=== PATIENT | female | born 1960 | race Caucasian/White ===

== ENCOUNTER → 2016-06-23 | Outpatient (CLI) | payer BC ==
[2016-06-23 09:56] LABS: Basophils % (A) 1 %; CH 33.7; CHCM 34.7; Eosinophils # (A) 0.2 k/uL (0-0.7); Eosinophils % (A) 3 %; HCT 46.4 % (34.0-46.0); HDW 2.83; HGB 15.8 gm/dL (11.4-16.0); Luc # (Auto) 0.11; Luc % (Auto) 2; Lymphocytes # (A) 1.9 k/uL (1.0-4.8); Lymphocytes % (A) 33 %; MCH 33.1 pg (25.0-35.0); MCHC 33.9 g/dL (31.0-37.0); MCV 97.5 fL (80.0-100.0); Mean Platelet Volume 6.1; Monocytes # (A) 0.5 k/uL (0-1.0); Monocytes % (A) 8 %; Neutrophils # (A) 3.1 k/uL (1.3-7.7); Neutrophils % (A) 54 %; RBC 4.76 m/uL (3.80-5.40); RDW 14.7 % (11.5-15.5); WBC 5.7 k/uL (3.8-10.6); WBC (Perox) 5.72
[2016-06-23 10:06] LABS: ALT 28 U/L (9-52); AST 21 U/L (14-36); Alkaline Phosphatase 79 U/L (38-126); Anion Gap 9 mmol/L; Blood Urea Nitrogen 15 mg/dL (7-17); Calcium 9.3 mg/dL (8.4-10.2); Carbon Dioxide 35 mmol/L (22-30); Chloride 99 mmol/L (98-107); Cholesterol 211 mg/dL (<200); Glucose 96 mg/dL (74-99); HDL Cholesterol 90 mg/dL (40-60); Non-African American GFR(MDRD) >60 (>60 ml/min/1.73 sqM); Potassium 3.9 mmol/L (3.5-5.1); Sodium 143 mmol/L (137-145); Total Bilirubin 0.8 mg/dL (0.2-1.3); Total Protein 7.4 g/dL (6.3-8.2); Triglycerides 77 mg/dL (<150)
[2016-06-23 10:54] LABS: Hepatitis C Virus IgG Index 0.03
[2016-06-23 10:55] LABS: Hepatitis C Virus IgG Ab Negative (Negative)
== END | disposition home or self-care (01) ==
LOC: LABWHC1 09:05
PROVIDERS: ATTEND Family Medicine
DX: Z13.9 Encounter for screening, unspecified (principal); E78.2 Mixed hyperlipidemia; E03.9 Hypothyroidism, unspecified; I10 Essential (primary) hypertension
CPT/HCPCS: 36415; 80053; 80061; 84439; 84443; 84481; 85025; 86803

== ENCOUNTER 2018-03-24 06:28 | Emergency (ER) | payer BC ==
[2018-03-24 06:53] LABS: Glucose,Whole Blood 91 mg/dL (75-99)
[2018-03-24] MEDS ORDERED: SODIUM CHLORIDE 0.9% 1,000 ML IV STA (07:22)
[2018-03-24] MEDS ORDERED: hydrALAZINE HCL 20 MG/ML 1 ML VIAL IVP STA ×2 (07:24→11:17)
--- NOTE | 2018-03-24 07:37 | ED ---
General Adult HPI - General Chief complaint: Neuro Symptoms/Deficit Stated complaint: Confusion Time Seen by Provider: 03/24/18 07:07 Source: patient, family, RN notes reviewed Mode of arrival: ambulatory Limitations: altered mental status - History of Present Illness Initial comments: Patient is a is a 57-year-old female presenting to the emergency Department with family for change in mental status. Onset of symptoms was this morning. Last known well was last night. Patient feels somewhat confused. Patient has problems with memory regarding recent events. Patient was forgetful but they were in the process of moving. Patient also forgot that she was supposed to spend the night and equal tells me. Patient has also forgotten that she called and take the work day off. No headache. Patient states she does have vague memory of some of these things now that is being discussed. No headache. No isolated area of weakness. No history of similar symptoms previously. Patient has been off her medications for the last month. - Related Data Previous Rx's Medication Instructions Recorded amLODIPine [Norvasc] 5 mg PO DAILY #7 tab 03/24/18 Allergies Allergy/AdvReac Type Severity Reaction Status Date / Time Sulfa (Sulfonamide Allergy Unknown Verified 03/24/18 07:21 Antibiotics) Childhood Review of Systems ROS Statement: Those systems with pertinent positive or pertinent negative responses have been documented in the HPI. ROS Other: All systems not noted in ROS Statement are negative. Constitutional: Denies: fever Eyes: Denies: eye pain ENT: Denies: ear pain Respiratory: Denies: cough Cardiovascular: Denies: chest pain Endocrine: Denies: fatigue Gastrointestinal: Denies: abdominal pain Genitourinary: Denies: dysuria Musculoskeletal: Denies: back pain Skin: Denies: rash Neurological: Reports: confusion. Denies: weakness Past Medical History Past Medical History: Hypertension, Pneumonia, Thyroid Disorder Additional Past Medical History / Comment(s): 09/07/14 Pt admitted to floor s/p revision total R knee arthroscopy. Other HX: migraines, hypothyroidism History of Any Multi-Drug Resistant Organisms: None Reported Past Surgical History: Appendectomy, Bariatric Surgery, Section, Hysterectomy, Joint Replacement, Orthopedic Surgery Additional Past Surgical History / Comment(s): 09/07/14 Revision total R knee arthroplasty. Additional SX: partial thyroidectomy, kyree knee replacements, rt knee arthroscopy, lap band Past Anesthesia/Blood Transfusion Reactions: No Reported Reaction Past Psychological History: No Psychological Hx Reported Smoking Status: Former smoker Past Alcohol Use History: Occasional Past Drug Use History: None Reported - Past Family History Father Family Medical History: Cancer General Exam Limitations: altered mental status General appearance: alert, in no apparent distress Head exam: Present: atraumatic Eye exam: Present: normal appearance, PERRL, EOMI. Absent: nystagmus ENT exam: Present: normal oropharynx Neck exam: Present: normal inspection Respiratory exam: Present: normal lung sounds bilaterally. Absent: chest wall tenderness Cardiovascular Exam: Present: regular rate, normal rhythm Expanded Peripheral pulses: 2+: Radial (R), Radial (L), Posterior Tibialis (R), Posterior Tibialis (L) GI/Abdominal exam: Present: soft. Absent: tenderness Extremities exam: Present: normal inspection. Absent: pedal edema, calf tenderness Neurological exam: Present: alert, oriented X3, CN II-XII intact. Absent: motor sensory deficit Expanded Neurological exam: Present: protecting the airway Patient oriented to: Present: person, place, time Speech: Present: fluid speech Cranial nerves: EOM's Intact: Normal, Facial Sensation: Normal Sensory exam: Upper Extremity Light Touch: Normal, Lower Extremity Light Touch: Normal Motor strength exam: RUE: 5, LUE: 5, RLE: 5, LLE: 5 Eye Response: (4) open spontaneously Motor Response: (6) obeys commands Verbal Response: (5) oriented Psychiatric exam: Present: normal affect, normal mood Skin exam: Present: normal color Course Vital Signs 03/24/18 03/24/18 03/24/18 06:35 06:55 07:48 Temperature 97.8 F 97.9 F Pulse Rate 83 81 78 Respiratory 20 18 18 Rate Blood Pressure 173/103 177/122 161/117 O2 Sat by Pulse 98 100 100 Oximetry 03/24/18 03/24/18 03/24/18 08:33 08:46 11:03 Temperature Pulse Rate 78 95 81 Respiratory 18 16 18 Rate Blood Pressure 158/84 168/92 146/113 O2 Sat by Pulse 100 100 100 Oximetry 03/24/18 11:28 Temperature Pulse Rate 82 Respiratory 18 Rate Blood Pressure 157/92 O2 Sat by Pulse 99 Oximetry - Reevaluation(s) Reevaluation #1: 03/24/18 11:17 Patient reevaluated and improving. Patient states she remembers majority of things at this point. Patient adds that she also remembers striking her head on a cabinet earlier this morning. She states it knocked her down but she did not completely lose consciousness. Clinical picture is now more insistent with concussion. Patient blood pressure did respond well to hydralazine however starting to rise again. Patient will be given an additional dose with anticipation of likely discharge. EKG Findings - EKG Comments: EKG Findings:: Normal sinus rhythm 81. LA 152. QRS 78. QT 376. QTc 436. Left axis. Normal QRS. No acute ST change. Medical Decision Making - Lab Data Result diagrams: 03/24/18 07:06 03/24/18 07:06 Lab Results 03/24/18 03/24/18 03/24/18 Range/Units 06:49 07:06 07:06 WBC 7.7 (3.8-10.6) k/uL RBC 4.62 (3.80-5.40) m/uL Hgb 15.4 (11.4-16.0) gm/dL Hct 45.6 (34.0-46.0) % MCV 98.6 (80.0-100.0) fL MCH 33.2 (25.0-35.0) pg MCHC 33.7 (31.0-37.0) g/dL RDW 14.1 (11.5-15.5) % Plt Count 196 (150-450) k/uL Neutrophils % 76 % Lymphocytes % 15 % Monocytes % 5 % Eosinophils % 2 % Basophils % 1 % Neutrophils # 5.8 (1.3-7.7) k/uL Lymphocytes # 1.2 (1.0-4.8) k/uL Monocytes # 0.4 (0-1.0) k/uL Eosinophils # 0.2 (0-0.7) k/uL Basophils # 0.0 (0-0.2) k/uL PT (9.0-12.0) sec INR (<1.2) APTT (22.0-30.0) sec Sodium (137-145) mmol/L Potassium (3.5-5.1) mmol/L Chloride (98-107) mmol/L Carbon Dioxide (22-30) mmol/L Anion Gap mmol/L BUN (7-17) mg/dL Creatinine (0.52-1.04) mg/dL Est GFR (CKD-EPI)AfAm (>60 ml/min/1.73 sqM) Est GFR (CKD-EPI)NonAf (>60 ml/min/1.73 sqM) Glucose (74-99) mg/dL POC Glucose (mg/dL) 91 (75-99) mg/dL POC Glu Executive Meeting Manager ID Jeannette Real Calcium (8.4-10.2) mg/dL Total Bilirubin (0.2-1.3) mg/dL AST (14-36) U/L ALT (9-52) U/L Alkaline Phosphatase (38-126) U/L Total Creatine Kinase 69 (30-135) U/L CK-MB (CK-2) 1.4 (0.0-2.4) ng/mL CK-MB (CK-2) Rel Index 2.0 Troponin I <0.012 (0.000-0.034) ng/mL Total Protein (6.3-8.2) g/dL Albumin (3.5-5.0) g/dL TSH (0.465-4.680) mIU/L Free T4 (0.78-2.19) ng/dL Free T3 pg/mL (2.8-5.3) pg/ml Urine Color Urine Appearance (Clear) Urine pH (5.0-8.0) Ur Specific May (1.001-1.035) Urine Protein (Negative) Urine Glucose (UA) (Negative) Urine Ketones (Negative) Urine Blood (Negative) Urine Nitrite (Negative) Urine Bilirubin (Negative) Urine Urobilinogen (<2.0) mg/dL Ur Leukocyte Esterase (Negative) Urine WBC (0-5) /hpf Ur Squamous Epith Cells (0-4) /hpf Urine Mucus (None) /hpf 03/24/18 03/24/18 03/24/18 Range/Units 07:06 07:06 07:06 WBC (3.8-10.6) k/uL RBC (3.80-5.40) m/uL Hgb (11.4-16.0) gm/dL Hct (34.0-46.0) % MCV (80.0-100.0) fL MCH (25.0-35.0) pg MCHC (31.0-37.0) g/dL RDW (11.5-15.5) % Plt Count (150-450) k/uL Neutrophils % % Lymphocytes % % Monocytes % % Eosinophils % % Basophils % % Neutrophils # (1.3-7.7) k/uL Lymphocytes # (1.0-4.8) k/uL Monocytes # (0-1.0) k/uL Eosinophils # (0-0.7) k/uL Basophils # (0-0.2) k/uL PT 10.0 (9.0-12.0) sec INR 0.9 (<1.2) APTT 22.5 (22.0-30.0) sec Sodium 141 (137-145) mmol/L Potassium 4.0 (3.5-5.1) mmol/L Chloride 109 H (98-107) mmol/L Carbon Dioxide 27 (22-30) mmol/L Anion Gap 5 mmol/L BUN 20 H (7-17) mg/dL Creatinine 0.56 (0.52-1.04) mg/dL Est GFR (CKD-EPI)AfAm >90 (>60 ml/min/1.73 sqM) Est GFR (CKD-EPI)NonAf >90 (>60 ml/min/1.73 sqM) Glucose 97 (74-99) mg/dL POC Glucose (mg/dL) (75-99) mg/dL POC Glu Executive Meeting Manager ID Calcium 9.5 (8.4-10.2) mg/dL Total Bilirubin 0.8 (0.2-1.3) mg/dL AST 23 (14-36) U/L ALT 32 (9-52) U/L Alkaline Phosphatase 76 (38-126) U/L Total Creatine Kinase (30-135) U/L CK-MB (CK-2) (0.0-2.4) ng/mL CK-MB (CK-2) Rel Index Troponin I (0.000-0.034) ng/mL Total Protein 6.9 (6.3-8.2) g/dL Albumin 4.3 (3.5-5.0) g/dL TSH 4.830 H (0.465-4.680) mIU/L Free T4 0.88 (0.78-2.19) ng/dL Free T3 pg/mL 4.0 (2.8-5.3) pg/ml Urine Color Urine Appearance (Clear) Urine pH (5.0-8.0) Ur Specific May (1.001-1.035) Urine Protein (Negative) Urine Glucose (UA) (Negative) Urine Ketones (Negative) Urine Blood (Negative) Urine Nitrite (Negative) Urine Bilirubin (Negative) Urine Urobilinogen (<2.0) mg/dL Ur Leukocyte Esterase (Negative) Urine WBC (0-5) /hpf Ur Squamous Epith Cells (0-4) /hpf Urine Mucus (None) /hpf 03/24/18 Range/Units 08:41 WBC (3.8-10.6) k/uL RBC (3.80-5.40) m/uL Hgb (11.4-16.0) gm/dL Hct (34.0-46.0) % MCV (80.0-100.0) fL MCH (25.0-35.0) pg MCHC (31.0-37.0) g/dL RDW (11.5-15.5) % Plt Count (150-450) k/uL Neutrophils % % Lymphocytes % % Monocytes % % Eosinophils % % Basophils % % Neutrophils # (1.3-7.7) k/uL Lymphocytes # (1.0-4.8) k/uL Monocytes # (0-1.0) k/uL Eosinophils # (0-0.7) k/uL Basophils # (0-0.2) k/uL PT (9.0-12.0) sec INR (<1.2) APTT (22.0-30.0) sec Sodium (137-145) mmol/L Potassium (3.5-5.1) mmol/L Chloride (98-107) mmol/L Carbon Dioxide (22-30) mmol/L Anion Gap mmol/L BUN (7-17) mg/dL Creatinine (0.52-1.04) mg/dL Est GFR (CKD-EPI)AfAm (>60 ml/min/1.73 sqM) Est GFR (CKD-EPI)NonAf (>60 ml/min/1.73 sqM) Glucose (74-99) mg/dL POC Glucose (mg/dL) (75-99) mg/dL POC Glu Executive Meeting Manager ID Calcium (8.4-10.2) mg/dL Total Bilirubin (0.2-1.3) mg/dL AST (14-36) U/L ALT (9-52) U/L Alkaline Phosphatase (38-126) U/L Total Creatine Kinase (30-135) U/L CK-MB (CK-2) (0.0-2.4) ng/mL CK-MB (CK-2) Rel Index Troponin I (0.000-0.034) ng/mL Total Protein (6.3-8.2) g/dL Albumin (3.5-5.0) g/dL TSH (0.465-4.680) mIU/L Free T4 (0.78-2.19) ng/dL Free T3 pg/mL (2.8-5.3) pg/ml Urine Color Yellow Urine Appearance Clear (Clear) Urine pH 7.0 (5.0-8.0) Ur Specific May 1.016 (1.001-1.035) Urine Protein Negative (Negative) Urine Glucose (UA) Negative (Negative) Urine Ketones Negative (Negative) Urine Blood Negative (Negative) Urine Nitrite Negative (Negative) Urine Bilirubin Negative (Negative) Urine Urobilinogen <2.0 (<2.0) mg/dL Ur Leukocyte Esterase Large H (Negative) Urine WBC 7 H (0-5) /hpf Ur Squamous Epith Cells 1 (0-4) /hpf Urine Mucus Rare H (None) /hpf - Radiology Data Radiology results: report reviewed (Atrophy and chronic small vessel disease without acute abnormality), image reviewed (No acute process. Borderline heart size. Possible underlying pulmonary arterial hypertension.) Disposition Clinical Impression: Concussion, Hypertensive urgency Disposition: HOME SELF-CARE Condition: Stable Instructions (If sedation given, give patient instructions): Concussion (ED), Hypertension (ED) Additional Instructions: Please follow-up with primary care physician in the next day or 2 for recheck. You will need further management for blood pressure control. Return for confusion, weakness, uncontrolled pain, visual changes, worsening or changing symptoms or other concerns. Prescriptions: amLODIPine [Norvasc] 5 mg PO DAILY #7 tab Is patient prescribed a controlled substance at d/c from ED?: No Referrals: El Morales MD [Primary Care Provider] - 1-2 days Time of Disposition: 11:51
--- NOTE | 2018-03-24 07:55 | CT ---
EXAMINATION TYPE: CT brain wo con DATE OF EXAM: 03/24/2018 COMPARISON: 08/10/2011 HISTORY: Confusion CT DLP: 1083.[address] of the brain was performed. The ventricles, basal cisterns and sulci overlying the cerebral convexities demonstrate mild enlargem ent. There is no evidence for intracranial hemorrhage or sulcal effacement. There is decreased attenuation about the periventricular white matter and deep white matter of both c erebral hemispheres, compatible with chronic small vessel ischemia. Differential diagnosis does inclu de demyelination. No mass effects are seen.No midline shift. Osseous calvarium is intact. If symptoms persist consider MRI. IMPRESSION: 1. Age related atrophic and chronic small vessel ischemic change without acute intracranial process s een at this time.
[2018-03-24 07:59] LABS: ALT 32 U/L (9-52); AST 23 U/L (14-36); Albumin 4.3 g/dL (3.5-5.0); Alkaline Phosphatase 76 U/L (38-126); Anion Gap 5 mmol/L; Basophils % (A) 1 %; Blood Urea Nitrogen 20 mg/dL (7-17); Calcium 9.5 mg/dL (8.4-10.2); Carbon Dioxide 27 mmol/L (22-30); Chloride 109 mmol/L (98-107); Eosinophils # (A) 0.2 k/uL (0-0.7); Eosinophils % (A) 2 %; Glucose 97 mg/dL (74-99); HCT 45.6 % (34.0-46.0); HGB 15.4 gm/dL (11.4-16.0); Lymphocytes # (A) 1.2 k/uL (1.0-4.8); Lymphocytes % (A) 15 %; MCH 33.2 pg (25.0-35.0); MCHC 33.7 g/dL (31.0-37.0); MCV 98.6 fL (80.0-100.0); Mean Platelet Volume 6.7; Monocytes # (A) 0.4 k/uL (0-1.0); Monocytes % (A) 5 %; Neutrophils # (A) 5.8 k/uL (1.3-7.7); Neutrophils % (A) 76 %; Platelet Count 196 k/uL (150-450); RBC 4.62 m/uL (3.80-5.40); RDW 14.1 % (11.5-15.5); Sodium 141 mmol/L (137-145); Total Bilirubin 0.8 mg/dL (0.2-1.3); Total Protein 6.9 g/dL (6.3-8.2); WBC 7.7 k/uL (3.8-10.6)
[2018-03-24 08:05] LABS: INR 0.9 (<1.2); Partial Thromboplastin Time 22.5 sec (22.0-30.0)
[2018-03-24 08:10] LABS: Creatine Kinase 69 U/L (30-135)
--- NOTE | 2018-03-24 08:15 | XR ---
EXAMINATION TYPE: XR chest 2V DATE OF EXAM: 03/24/2018 COMPARISON: None HISTORY: 57-year-old female confusion, altered mental status TECHNIQUE: AP and lateral views FINDINGS: Heart borderline enlarged. Mild elongation thoracic aorta. No consolidation or pleural effusion. Ther e is large appearance to the main right and left pulmonary arteries on the lateral view. Lap band dev ice is present. IMPRESSION: Borderline heart size. Possible underlying pulmonary arterial hypertension. Otherwise, no acute proce ss seen.
[2018-03-24 08:22] LABS: Creatine Kinase MB 1.4 ng/mL (0.0-2.4); Troponin I <0.012 ng/mL (0.000-0.034)
[2018-03-24 08:37] LABS: T4, Free (Free Thyroxine) 0.88 ng/dL (0.78-2.19)
[2018-03-24 09:04] LABS: Appearance,Urine Clear (Clear); Bilirubin,Urine Negative (Negative); Blood,Urine Negative (Negative); Color,Urine Yellow; Glucose,Urine (UA) Negative (Negative); Ketones,Urine Negative (Negative); Leukocyte Esterase,Urine Large (Negative); Mucus,Urine Rare /hpf; Nitrite,Urine Negative (Negative); Protein,Urine Negative (Negative); Specific Gravity,Urine 1.016 (1.001-1.035); Squamous Epithelial Cell,Urine 1 /hpf (0-4); Urobilinogen,Urine <2.0 mg/dL (<2.0)
[2018-03-24 11:05] VITALS: RESP 18
[2018-03-24] MEDS ORDERED: amLODIPine 5 MG TAB PO STA (11:19)
[2018-03-24 12:26] VITALS: BP 148/77; PULSE 95; TEMP 98
== END 2018-03-24 12:25 | disposition home or self-care (01) ==
LOC: EC 06:28
DX: S06.0X0A Concussion without loss of consciousness, initial encounter (principal); I16.0 Hypertensive urgency; G31.9 Degenerative disease of nervous system, unspecified; I67.89 Other cerebrovascular disease; Z87.891 Personal history of nicotine dependence; Z88.2 Allergy status to sulfonamides; X58.XXXA Exposure to other specified factors, initial encounter
CPT/HCPCS: 99285; 96374; 96376; 96361 ×5; 36415; 93005; 84439; 84481; 80053; 82550; 82553; 84443; 84484; 85025; 85610; 85730; 81001; 87086; 71046; 70450; J0360

== ENCOUNTER → 2018-04-14 | Outpatient (CLI) | payer BC ==
--- NOTE | 2018-04-15 10:14 | MM ---
Reason for exam: screening (asymptomatic). Last mammogram was performed 7 years and 5 months ago. Physical Findings: A clinical breast exam by your physician is recommended on an annual basis and results should be correlated with mammographic findings. MG Screening Mammo w CAD Bilateral CC and MLO view(s) were taken. Prior study comparison: November 25, 2010, bilateral digital screening mammo w/CAD. The breast tissue is heterogeneously dense. This may lower the sensitivity of mammography. There are two small masses at anterior depth in the right lower inner quadrant. No suspicious abnormality in the left breast. ASSESSMENT: Incomplete: need additional imaging evaluation, BI-RAD 0 RECOMMENDATION: Ultrasound of the right breast. [facility] will attempt to contact patient to return for ultrasound.
== END ==
LOC: RADMAMWWP 10:51
PROVIDERS: ATTEND Family Medicine
DX: Z12.39 Encounter for other screening for malignant neoplasm of breast (principal)
CPT/HCPCS: 77067

== ENCOUNTER → 2018-04-14 | Outpatient (CLI) | payer BC ==
--- NOTE | 2018-04-15 04:53 | US ---
EXAMINATION TYPE: US carotid duplex BILAT DATE OF EXAM: 04/14/2018 COMPARISON: NONE CLINICAL HISTORY: 57-year-old female R55 Syncope. TECHNIQUE: Carotid duplex ultrasound examination. Indirect Doppler criteria was utilized. FINDINGS: EXAM MEASUREMENTS: RIGHT: Peak Systolic Velocity (PSV) cm/sec ----- Right CCA: 71.2 ----- Right ICA: 83.7 ----- Right ECA: 114.8 ICA/CCA ratio: 1.2 RIGHT: End Diastole cm/sec ----- Right CCA: 21.5 ----- Right ICA: 25.4 ----- Right ECA: 15.0 LEFT: Peak Systolic Velocity (PSV) cm/sec ----- Left CCA: 96.5 ----- Left ICA: 93.2 ----- Left ECA: 74.5 ICA/CCA ratio: 1.0 LEFT: End Diastole cm/sec ----- Left CCA: 26.0 ----- Left ICA: 35.9 ----- Left ECA: 9.5 VERTEBRALS (direction of flow): Right Vertebral: Antegrade Left Vertebral: Antegrade Rhythm: Normal Media Strategist notes: No significant stenosis seen, no plaque appreciated at either bulb. IMPRESSION: No hemodynamically significant stenosis appreciated in either internal carotid artery. Criteria for Assigning % of Stenosis / Diameter reduction (Estimation based on the indirect measurements of the internal carotid artery velocities (ICA PSV). 1. Normal (no stenosis)=ICA PSV < 125 cm/s: ratio < 2.0: ICA EDV<40 cm/s. 2. Less than 50% stenosis=ICA PSV < 125 cm/s: ratio < 2.0: ICA EDV<40 cm/s. 3. 50 to 69% stenosis=ICA PSV of 125 to 230 cm/s: ration 2.0 ? 4.0: ICA EDV 40-100 cm/s. 4. Greater than 70% stenosis to near occlusion= ICA PSV > 230 cm/s: ratio > 4.0: ICA EDV > 100 cm/s. 5. Near occlusion= ICA PSV velocities may be low or undetectable: variable ratio and ICA EDV. 6. Total occlusion=unable to detect flow.
--- NOTE | 2018-04-15 11:30 | ECHOF ---
Referral Reason:R55 Syncope MEASUREMENTS -------- HEIGHT: 154.9 cm WEIGHT: 80.7 kg BP: RVIDd: 2.5 cm (< 3.3) IVSd: 1.3 cm (0.6 - 1.1) LVIDd: 3.8 cm (3.9 - 5.3) LVPWd: 1.3 cm (0.6 - 1.1) IVSs: 1.6 cm LVIDs: 2.3 cm LVPWs: 1.6 cm LAESV Index (A-L): 16.93 ml/m Ao Diam: 2.8 cm (2.0 - 3.7) AV Cusp: 1.7 cm (1.5 - 2.6) LA Diam: 3.5 cm (2.7 - 3.8) MV EXCURSION: 18.221 mm (> 18.000) MV EF SLOPE: 78 mm/s (70 - 150) EPSS: 0.2 cm MV E Leon: 0.61 m/s MV DecT: 354 ms MV A Leon: 0.88 m/s MV E/A Ratio: 0.69 RAP: 5.00 mmHg RVSP: 18.61 mmHg FINDINGS -------- Sinus rhythm. This was a technically adequate study. The left ventricular size is normal. There is mild concentric left ventricular hypertrophy. Overa ll left ventricular systolic function is normal with, an EF between 65 - 70 %. The right ventricle is normal in size and function. Normal LA size by volume 22+/-6 ml/m2. The right atrium is normal in size. The aortic valve is trileaflet, and appears structurally normal. No aortic stenosis or regurgitation. The mitral valve leaflets are mildly thickened. There is trace to mild mitral regurgitation. Trace tricuspid regurgitation present. Right ventricular systolic pressure is normal at < 35 mmHg. There is no evidence of pulmonary hypertension. Trace/mild (physiologic) pulmonic regurgitation. The aortic root size is normal. Normal inferior vena cava with normal inspiratory collapse consistent with estimated right atrial pre ssure of 5 mmHg. There is no pericardial effusion. CONCLUSIONS -------- 1. Sinus rhythm. 2. This was a technically adequate study. 3. The left ventricular size is normal. 4. There is mild concentric left ventricular hypertrophy. 5. Overall left ventricular systolic function is normal with, an EF between 65 - 70 %. 6. Normal LA size by volume 22+/-6 ml/m2. 7. The aortic valve is trileaflet, and appears structurally normal. No aortic stenosis or regurgitati on. 8. The mitral valve leaflets are mildly thickened. 9. There is trace to mild mitral regurgitation. 10. Trace tricuspid regurgitation present. 11. Right ventricular systolic pressure is normal at < 35 mmHg. 12. There is no evidence of pulmonary hypertension. 13. Trace/mild (physiologic) pulmonic regurgitation. 14. The aortic root size is normal. 15. There is no pericardial effusion. TRAFFIC WORKFORCE REPRESENTATIVE: Gordon Abreu RDCS
== END ==
LOC: RADECHMAIN 16:21
PROVIDERS: ATTEND Family Medicine
DX: I34.0 Nonrheumatic mitral (valve) insufficiency (principal); I37.1 Nonrheumatic pulmonary valve insufficiency; R55 Syncope and collapse
CPT/HCPCS: 93306; 93880

== ENCOUNTER → 2018-05-01 | Outpatient (CLI) | payer BC ==
--- NOTE | 2018-05-01 10:30 | USB ---
Reason for exam: additional evaluation requested from abnormal screening. Physical Findings: Nurse Summary: generalized lumpiness 3-4 o'clock inner to outer quadrant (nurse francisco). US Breast Workup Limited RT Right limited breast ultrasound including focal area of concern, retroareolar and axilla demonstrates a 0.4 x 0.4 x 0.2cm oval, cystic lesion at 3 o'clock and a 0.4 x 0.7 x 0.1cm oval, cystic lesion at 3 o'clock. Benign. Well defined posterior wall and slight increase through transmission. These results were verbally communicated with the patient and result sheet given to the patient on 05/01/18. ASSESSMENT: Benign, BI-RAD 2 RECOMMENDATION: Follow-up diagnostic mammogram of both breasts in 1 year. Back on schedule.
== END | disposition home or self-care (01) ==
LOC: RADUSWWP 09:31
PROVIDERS: ATTEND Family Medicine
DX: R92.8 Other abnormal and inconclusive findings on diagnostic imaging of breast (principal)

== ENCOUNTER 2018-11-05 14:27 | Inpatient (IN) | payer BC ==
[2018-11-05] MEDS ORDERED: SODIUM CHLORIDE 0.9% 500 ML 500 ML IV STA (14:41)
[2018-11-05] MEDS ORDERED: ONDANSETRON 4 MG/2 ML VIAL IVP STA ×2 (15:23→17:42)
[2018-11-05 15:55] LABS: Basophils # (A) 0.2 k/uL (0-0.2); Basophils % (A) 2 %; Eosinophils # (A) 0.2 k/uL (0-0.7); Eosinophils % (A) 2 %; HCT 47.6 % (34.0-46.0); HGB 15.9 gm/dL (11.4-16.0); Lymphocytes # (A) 1.3 k/uL (1.0-4.8); Lymphocytes % (A) 10 %; MCH 31.9 pg (25.0-35.0); MCHC 33.3 g/dL (31.0-37.0); MCV 95.6 fL (80.0-100.0); Mean Platelet Volume 6.5; Monocytes # (A) 0.6 k/uL (0-1.0); Monocytes % (A) 5 %; Neutrophils # (A) 9.8 k/uL (1.3-7.7); Neutrophils % (A) 81 %; Platelet Count 201 k/uL (150-450); RBC 4.98 m/uL (3.80-5.40); RDW 13.6 % (11.5-15.5); WBC 12.1 k/uL (3.8-10.6)
[2018-11-05 16:09] LABS: ALT 21 U/L (9-52); AST 24 U/L (14-36); African American GFR (CKD) >90 (>60 ml/min/1.73 sqM); Albumin 4.6 g/dL (3.5-5.0); Alkaline Phosphatase 64 U/L (38-126); Anion Gap 11 mmol/L; Blood Urea Nitrogen 19 mg/dL (7-17); Calcium 9.4 mg/dL (8.4-10.2); Carbon Dioxide 25 mmol/L (22-30); Chloride 103 mmol/L (98-107); Glucose 102 mg/dL (74-99); Potassium 3.6 mmol/L (3.5-5.1); Sodium 139 mmol/L (137-145); Total Bilirubin 1.1 mg/dL (0.2-1.3); Total Protein 7.4 g/dL (6.3-8.2)
[2018-11-05 16:28] LABS: Partial Thromboplastin Time 23.9 sec (22.0-30.0); Prothrombin Time 10.3 sec (9.0-12.0)
--- NOTE | 2018-11-05 17:08 | XR ---
EXAMINATION TYPE: XR KUB DATE OF EXAM: 11/05/2018 COMPARISON: NONE HISTORY: Back pain. Abdominal pain TECHNIQUE: 2 views upright FINDINGS: There is no sign of intestinal obstruction or pneumoperitoneum. Fecal pattern is normal. Th ere is gastric sleeve noted. Lung bases are clear. There are no pathologic calcifications over the ki dneys. IMPRESSION: Nonacute abdomen.
[2018-11-05] MEDS ORDERED: ONDANSETRON 4 MG/2 ML VIAL IVP PRN (17:21)
[2018-11-05] MEDS ORDERED: NALOXONE 0.4 MG/ML 1 ML VIAL IV PRN (17:21)
--- NOTE | 2018-11-05 17:21 | ED ---
General Adult HPI - General Chief complaint: GI Bleed Stated complaint: rectal bleeding Time Seen by Provider: 11/05/18 14:41 Source: patient, RN notes reviewed, old records reviewed Mode of arrival: ambulatory Limitations: no limitations - History of Present Illness Initial comments: 58-year-old female patient with past history including status post appendectomy, hysterectomy, orthopedic surgeries presents ED chief complaint of 2 days of d iarrhea and bright red blood from rectum. Patient reports that the diarrhea is explosive in nature. Patient reports that she had some nausea without emesis. Patient states that she had some abdominal cramping, denies any focal abdominal pain. Patient also complains of some mild low back pain. Patient denies any other complaints. Systemic: Pt denies fatigue, fever/chills, rash. Pt denies weakness, night sweats, weight loss. Neuro: Pt denies headache, visual disturbances, syncope or pre-syncope. HEENT: Pt denies ocular discharge or irritation, otalgia, rhinorrhea, pharyngitis or notable lymphadenopathy. Cardiopulmonary: Pt denies chest pain, SOB, heart palpitations, dyspnea on exertion. Abdominal/GI: Pt denies abdominal pain, n/v/d. : Pt denies dysuria, burning w/ urination, frequency/urgency. Denies new onset urinary or bowel incontinence. MSK: Pt denies myalgia, loss of strength or function in extremities. Neuro: Pt denies new onset weakness, paresthesias. - Related Data Home Medications Medication Instructions Recorded Confirmed Acetaminophen Tab [Tylenol Tab] 1,000 mg PO Q6HR PRN 11/05/18 11/05/18 Amitriptyline HCl [Elavil] 10 mg PO HS 11/05/18 11/05/18 Diclofenac Sodium [Voltaren] 75 mg PO BID 11/05/18 11/05/18 FLUoxetine HCL [PROzac] 40 mg PO DAILY 11/05/18 11/05/18 Gabapentin [Neurontin] 200 mg PO TID 11/05/18 11/05/18 Hydrochlorothiazide [Hydrodiuril] 50 mg PO DAILY 11/05/18 11/05/18 Levothyroxine Sodium [Synthroid] 50 mcg PO DAILY 11/05/18 11/05/18 Naproxen 500 mg PO BID 11/05/18 11/05/18 Allergies Allergy/AdvReac Type Severity Reaction Status Date / Time oxycodone Allergy Dyspnea Verified 11/05/18 14:44 Sulfa (Sulfonamide Allergy Unknown Verified 11/05/18 14:44 Antibiotics) Review of Systems ROS Statement: Those systems with pertinent positive or pertinent negative responses have been documented in the HPI. ROS Other: All systems not noted in ROS Statement are negative. Past Medical History Past Medical History: Hypertension, Pneumonia, Thyroid Disorder Additional Past Medical History / Comment(s): 09/07/14 Pt admitted to floor s/p revision total R knee arthroscopy. Other HX: migraines, hypothyroidism History of Any Multi-Drug Resistant Organisms: None Reported Past Surgical History: Appendectomy, Bariatric Surgery, Section, Hyste rectomy, Joint Replacement, Orthopedic Surgery Additional Past Surgical History / Comment(s): 09/07/14 Revision total R knee arthroplasty. Additional SX: partial thyroidectomy, kyree knee replacements, rt knee arthroscopy, lap band Past Anesthesia/Blood Transfusion Reactions: No Reported Reaction Past Psychological History: No Psychological Hx Reported Smoking Status: Former smoker Past Alcohol Use History: Occasional Past Drug Use History: None Reported - Past Family History Father Family Medical History: Cancer General Exam - General Exam Comments Initial Comments: Constitutional: NAD, AOX3, Pt has pleasant affect. HEENT: NC/AT, trachea midline, neck supple, no lymphadenopathy. Posterior pharynx non erythematous, without exudates. External ears appear normal, without discharge. Mucous membranes moist. Eyes PERRLA, EOM intact. There is no scleral icterus. No pallor noted. Cardiopulmonary: RRR, no murmurs, rubs or gallops, no JVD noted. Lungs CTAB in anterior and posterior arias. No peripheral edema. Abdominal exam: Abdomen soft and non-distended. Abdomen non-tender to palpation in all 4 quadrants. Bowel sounds active in LLQ. No hepatosplenomegaly. No ecchymosis Neuro: CN II-XII grossly intact. No nuchal rigidity. No raccon eyes, no butler sign, no hemotympanum. No cervical spinal tenderness. MSK: No posterior calf tenderness bilaterally, homans sign negative bilaterally. Posterior tibialis and radial pulse +2 bilaterally. Sensation intact in upper and lower extremities. Full active ROM in upper and lower extremities, 5/5 stregnth. Limitations: no limitations Course Vital Signs 11/05/18 14:31 Temperature 99.0 F Pulse Rate 101 H Respiratory 18 Rate Blood Pressure 167/98 O2 Sat by Pulse 99 Oximetry Medical Decision Making - Medical Decision Making 58-year-old female patient with past history including status post appendectomy, hysterectomy, orthopedic surgeries presents ED chief complaint of 2 days of diarrhea and bright red blood from rectum. Patient reports that the diarrhea is explosive in nature. Patient reports that she had some nausea without emesis. Patient states that she had some abdominal cramping, denies any focal abdominal pain. Patient also complains of some mild low back pain. Patient denies any other complaints. Physical exam did not display acute pathology. Abdomen soft, nontender, no ecchymoses. No guarding or rigidity. Laboratory investigation revealed mildly exudative. 12.1. Coagulation studies, CMP and noncompressive. Occult blood positive. KUB displayed nonacute abdomen. Patient will be admitted for GI bleed. Case discussed with Dr. Burk. - Lab Data Result diagrams: 11/05/18 15:35 11/05/18 15:35 Lab Results 11/05/18 11/05/18 11/05/18 Range/Units 15:35 15:35 15:35 WBC 12.1 H (3.8-10.6) k/uL RBC 4.98 (3.80-5.40) m/uL Hgb 15.9 (11.4-16.0) gm/dL Hct 47.6 H (34.0-46.0) % MCV 95.6 (80.0-100.0) fL MCH 31.9 (25.0-35.0) pg MCHC 33.3 (31.0-37.0) g/dL RDW 13.6 (11.5-15.5) % Plt Count 201 (150-450) k/uL Neutrophils % 81 % Lymphocytes % 10 % Monocytes % 5 % Eosinophils % 2 % Basophils % 2 % Neutrophils # 9.8 H (1.3-7.7) k/uL Lymphocytes # 1.3 (1.0-4.8) k/uL Monocytes # 0.6 (0-1.0) k/uL Eosinophils # 0.2 (0-0.7) k/uL Basophils # 0.2 (0-0.2) k/uL PT (9.0-12.0) sec INR (<1.2) APTT (22.0-30.0) sec Sodium 139 (137-145) mmol/L Potassium 3.6 (3.5-5.1) mmol/L Chloride 103 (98-107) mmol/L Carbon Dioxide 25 (22-30) mmol/L Anion Gap 11 mmol/L BUN 19 H (7-17) mg/dL Creatinine 0.57 (0.52-1.04) mg/dL Est GFR (CKD-EPI)AfAm >90 (>60 ml/min/1.73 sqM) Est GFR (CKD-EPI)NonAf >90 (>60 ml/min/1.73 sqM) Glucose 102 H (74-99) mg/dL Plasma Lactic Acid Martell (0.7-2.0) mmol/L Calcium 9.4 (8.4-10.2) mg/dL Total Bilirubin 1.1 (0.2-1.3) mg/dL AST 24 (14-36) U/L ALT 21 (9-52) U/L Alkaline Phosphatase 64 (38-126) U/L Total Protein 7.4 (6.3-8.2) g/dL Albumin 4.6 (3.5-5.0) g/dL Lipase 93 (23-300) U/L Stool Occult Blood Positive H (Negative) 11/05/18 11/05/18 Range/Units 15:35 15:35 WBC (3.8-10.6) k/uL RBC (3.80-5.40) m/uL Hgb (11.4-16.0) gm/dL Hct (34.0-46.0) % MCV (80.0-100.0) fL MCH (25.0-35.0) pg MCHC (31.0-37.0) g/dL RDW (11.5-15.5) % Plt Count (150-450) k/uL Neutrophils % % Lymphocytes % % Monocytes % % Eosinophils % % Basophils % % Neutrophils # (1.3-7.7) k/uL Lymphocytes # (1.0-4.8) k/uL Monocytes # (0-1.0) k/uL Eosinophils # (0-0.7) k/uL Basophils # (0-0.2) k/uL PT 10.3 (9.0-12.0) sec INR 1.0 (<1.2) APTT 23.9 (22.0-30.0) sec Sodium (137-145) mmol/L Potassium (3.5-5.1) mmol/L Chloride (98-107) mmol/L Carbon Dioxide (22-30) mmol/L Anion Gap mmol/L BUN (7-17) mg/dL Creatinine (0.52-1.04) mg/dL Est GFR (CKD-EPI)AfAm (>60 ml/min/1.73 sqM) Est GFR (CKD-EPI)NonAf (>60 ml/min/1.73 sqM) Glucose (74-99) mg/dL Plasma Lactic Acid Martell 1.1 (0.7-2.0) mmol/L Calcium (8.4-10.2) mg/dL Total Bilirubin (0.2-1.3) mg/dL AST (14-36) U/L ALT (9-52) U/L Alkaline Phosphatase (38-126) U/L Total Protein (6.3-8.2) g/dL Albumin (3.5-5.0) g/dL Lipase (23-300) U/L Stool Occult Blood (Negative) Disposition Clinical Impression: GI bleed Disposition: [facility] Condition: Serious Is patient prescribed a controlled substance at d/c from ED?: No Referrals: El Morales MD [Primary Care Provider] - 1-2 days
[2018-11-05] MEDS ORDERED: SODIUM CHLORIDE 0.9% 1,000 ML IV SCH (17:30)
[2018-11-05] MEDS ORDERED: PANTOPRAZOLE 40 MG/10 ML VIAL IV SCH (17:30)
[2018-11-05] MEDS ORDERED: ACETAMINOPHEN TAB 500 MG TAB PO PRN (21:14)
[2018-11-05] MEDS: NAPROXEN 250 MG TAB PO SCH (21:24)
--- NOTE | 2018-11-05 21:24 | P.HPIM ---
History of Present Illness H&P Date: 11/05/18 Chief Complaint: Bloody stools History of presenting complaint: This is a very pleasant 58-year-old patient of Dr. Morales. Chronic stable medical conditions include hypertension, hypothyroid migrates obesity. Patient yesterday started having cramping in the lower abdomen that Progressing. Then patient had multiple bowel movements liquid stools are watery diarrhea decided to go to work today and is started having bloody stools has felt a bit cold and chilly tired rundown exhausted then decided to come in. Admitted from the ER. The cramping pain is across lower abdomen. No radiation. Started on IV fluids. Review of systems: GEN.: [Tired EYES: None HEENT: None NECK: None RESPIRATORY: None CARDIOVASCULAR: None GASTROINTESTINAL: As above GENITOURINARY: None MUSCULOSKELETAL: Pain joints LYMPHATICS: None HEMATOLOGICAL: None PSYCHIATRY: None NEUROLOGICAL: None Social history: . Does not smoke. Alcohol occasionally. Works at [employer] Family history: Cancer Physical examination: VITAL SIGNS: 99, 101, 18, 167/98, 99% room air GENERAL: BMI of 34, sitting up in a chair, tired appearing. EYES: Pupils equal. Conjunctiva normal. HEENT: External appearance of nose and ears normal, oral cavity grossly normal. NECK: JVD not raised; masses not palpable. HEART: First and second heart sounds are normal; no edema. LUNGS: Respiratory rate normal; clear to auscultation. ABDOMEN: Soft, mild lower abdominal tenderness, no guarding or rigidity, liver spleen not palpable, no masses palpable. PSYCH: Alert and oriented x3; mood and affect normal. NEUROLOGICAL: Cranial nerves grossly intact; no facial asymmetry, power and sensation grossly intact. LYMPHATICS: No lymph nodes palpable in the axilla and neck INVESTIGATIONS, reviewed in the clinical context: White count 12.1 hemoglobin 15.9 platelets 201 potassium 3.6 creatinine 0.59 KUB-unremarkable Assessment: -This is a patient presents with acute onset of lower abdominal cramping pain has got a white count bloody stools diarrhea, tenderness on lower abdominal examination, clinical picture is compatible with acute colitis -Obesity BMI 30 4. 9 -essential hypertension -Hypothyroid Plan: Patient started on lactated Ringer's at 1 25 mL an hour. Started on clear liquids. GI was consulted. If patient does not improve we'll do a computed tomography scan. Follow labs. Patient be started on IV Zosyn. Care was discussed with patient at length question were answered. Past Medical History Past Medical History: Hypertension, Pneumonia, Thyroid Disorder Additional Past Medical History / Comment(s): 09/07/14 Pt admitted to floor s/p revision total R knee arthroscopy. Other HX: migraines, hypothyroidism History of Any Multi-Drug Resistant Organisms: None Reported Past Surgical History: Appendectomy, Bariatric Surgery, Section, Hysterectomy, Joint Replacement, Orthopedic Surgery Additional Past Surgical History / Comment(s): 09/07/14 Revision total R knee arthroplasty. Additional SX: partial thyroidectomy, kyree knee replacements, rt knee arthroscopy, lap band Past Anesthesia/Blood Transfusion Reactions: No Reported Reaction Past Psychological History: No Psychological Hx Reported Additional Psychological History / Comment(s): Pt resides with her spouse. She is normally independent. She uses no assistive devices. She has no home care. She drives. Smoking Status: Former smoker Past Alcohol Use History: Occasional Additional Past Alcohol Use History / Comment(s): Pt quit smoking in 2009. Past Drug Use History: None Reported - Past Family History Father Family Medical History: Cancer Medications and Allergies Home Medications Medication Instructions Recorded Confirmed Type Acetaminophen Tab [Tylenol Tab] 1,000 mg PO Q6HR PRN 11/05/18 11/05/18 History Amitriptyline HCl [Elavil] 10 mg PO HS 11/05/18 11/05/18 History Diclofenac Sodium [Voltaren] 75 mg PO BID 11/05/18 11/05/18 History FLUoxetine HCL [PROzac] 40 mg PO DAILY 11/05/18 11/05/18 History Gabapentin [Neurontin] 200 mg PO TID 11/05/18 11/05/18 History Hydrochlorothiazide [Hydrodiuril] 50 mg PO DAILY 11/05/18 11/05/18 History Levothyroxine Sodium [Synthroid] 50 mcg PO DAILY 11/05/18 11/05/18 History Naproxen 500 mg PO BID 11/05/18 11/05/18 History Allergies Allergy/AdvReac Type Severity Reaction Status Date / Time oxycodone Allergy Dyspnea Verified 11/05/18 14:44 Sulfa (Sulfonamide Allergy Unknown Verified 11/05/18 14:44 Antibiotics) Physical Exam Vitals: Vital Signs Temp Pulse Pulse Resp BP BP Pulse Ox 11/05/18 20:06 97.5 F L 93 20 158/94 93 L 11/05/18 19:38 98.5 F 91 14 152/87 97 11/05/18 17:35 98.1 F 97 15 154/92 96 11/05/18 14:31 99.0 F 101 H 18 167/98 99 Intake and Output 11/05/18 11/05/18 11/05/18 06:59 14:59 22:59 Other: Weight 81.647 kg Results CBC & Chem 7: 11/05/18 15:35 11/05/18 15:35 Labs: Abnormal Lab Results - Last 24 Hours (Table) 11/05/18 11/05/18 11/05/18 Range/Units 15:35 15:35 15:35 WBC 12.1 H (3.8-10.6) k/uL Hct 47.6 H (34.0-46.0) % Neutrophils # 9.8 H (1.3-7.7) k/uL BUN 19 H (7-17) mg/dL Glucose 102 H (74-99) mg/dL Stool Occult Blood Positive H (Negative) Thrombosis Risk Factor Assmnt - Choose All That Apply Any of the Below Risk Factors Present?: Yes Each Factor Represents 1 point: Age 41-60 years, Obesity (BMI >25) Other Risk Factors: Yes Thrombosis Risk Factor Assessment Total Risk Factor Score: 2 Thrombosis Risk Factor Assessment Level: Low Risk
[2018-11-05] MEDS: PIPERACILLIN-TAZOBACTAM 3.375 GM in SODIUM CHLORIDE 0.9% 100 ML IVPB SCH (21:32)
[2018-11-05] MEDS: GABAPENTIN 100 MG CAP PO SCH (21:32)
[2018-11-05] MEDS: AMITRIPTYLINE HCL 10 MG TAB PO SCH (21:32)
[2018-11-05] MEDS: LACTATED RINGERS 1,000 ML IV SCH (21:33)
[2018-11-06] MEDS: LACTATED RINGERS 1,000 ML IV SCH ×3 (04:17→20:53)
[2018-11-06] MEDS: PIPERACILLIN-TAZOBACTAM 3.375 GM in SODIUM CHLORIDE 0.9% 100 ML IVPB SCH ×3 (05:29→20:49)
[2018-11-06] MEDS: LEVOTHYROXINE 50 MCG TAB PO SCH (05:30)
[2018-11-06] MEDS: GABAPENTIN 100 MG CAP PO SCH ×3 (08:26→20:49)
[2018-11-06] MEDS: FLUoxetine HCL 20 MG CAP PO SCH (08:26)
[2018-11-06] MEDS: NAPROXEN 250 MG TAB PO SCH ×2 (08:27→20:53)
[2018-11-06 08:50] LABS: Basophils % (A) 1 %; Eosinophils # (A) 0.2 k/uL (0-0.7); Eosinophils % (A) 2 %; HCT 42.1 % (34.0-46.0); HGB 14.1 gm/dL (11.4-16.0); Lymphocytes # (A) 1.4 k/uL (1.0-4.8); Lymphocytes % (A) 18 %; MCH 32.5 pg (25.0-35.0); MCHC 33.5 g/dL (31.0-37.0); MCV 96.8 fL (80.0-100.0); Mean Platelet Volume 6.8; Monocytes # (A) 0.5 k/uL (0-1.0); Monocytes % (A) 6 %; Neutrophils # (A) 5.6 k/uL (1.3-7.7); Neutrophils % (A) 71 %; Platelet Count 178 k/uL (150-450); RBC 4.35 m/uL (3.80-5.40); RDW 13.7 % (11.5-15.5); WBC 7.9 k/uL (3.8-10.6)
[2018-11-06 09:01] LABS: African American GFR (CKD) >90 (>60 ml/min/1.73 sqM); Anion Gap 6 mmol/L; Blood Urea Nitrogen 13 mg/dL (7-17); Calcium 8.5 mg/dL (8.4-10.2); Carbon Dioxide 30 mmol/L (22-30); Chloride 104 mmol/L (98-107); Glucose 95 mg/dL (74-99); Potassium 3.4 mmol/L (3.5-5.1); Sodium 140 mmol/L (137-145)
[2018-11-06 11:17] LABS: HGB 13.3 gm/dL (11.4-16.0); MCH 32.3 pg (25.0-35.0); MCHC 33.3 g/dL (31.0-37.0); MCV 96.8 fL (80.0-100.0); Mean Platelet Volume 6.2; Platelet Count 166 k/uL (150-450); RBC 4.13 m/uL (3.80-5.40); RDW 13.5 % (11.5-15.5); WBC 8.5 k/uL (3.8-10.6)
[2018-11-06] MEDS ORDERED: PEG 3350-NA SULF,BICARB,CL/KCL 4,000 ML BOTTLE PO ONE (17:44)
[2018-11-06] MEDS ORDERED: BISACODYL 5 MG TABLET.DR PO STA (17:45)
[2018-11-06] MEDS ORDERED: POTASSIUM CHLORIDE ER 20 MEQ TAB.ER PO STA (19:58)
--- NOTE | 2018-11-06 19:58 | P.PN ---
Progress Note - Text Progress Note Date: 11/06/18 Chief Complaint: Bloody stools Interval history: This is a very pleasant 58-year-old patient of Dr. Morales. Chronic stable medical conditions include hypertension, hypothyroid migrates obesity. Patient yesterday started having cramping in the lower abdomen that Progressing. Then patient had multiple bowel movements liquid stools are watery diarrhea decided to go to work today and is started having bloody stools has felt a bit cold and chilly tired rundown exhausted then decided to come in. Admitted from the ER. The cramping pain is across lower abdomen. No radiation. Started on IV fluids. Diagnostic acute colitis. On IV fluids and IV antibiotics. Today-this morning. Pending a bit tired. Somewhat better abdominal pain. Decreased diarrhea. No fever no chills. Feeling rather exhausted. Review of systems: Was done for constitutional, cardiovascular, GI, pulmonary. relevant finding as above Active Medications Acetaminophen (Tylenol Tab) 1,000 mg PO Q6HR PRN PRN Reason: Pain Last Admin: 11/05/18 21:32 Dose: 1,000 mg Documented by: Amitriptyline HCl (Elavil) 10 mg PO HS [facility] Last Admin: 11/05/18 21:32 Dose: 10 mg Documented by: Fluoxetine HCl (Prozac) 40 mg PO DAILY [facility] Last Admin: 11/06/18 08:26 Dose: 40 mg Documented by: Gabapentin (Neurontin) 200 mg PO TID [facility] Last Admin: 11/06/18 16:00 Dose: 200 mg Documented by: Piperacillin Sod/Tazobactam (Sod 3.375 gm/ Sodium Chloride) 100 mls @ 25 mls/hr IVPB Q8H [facility] Last Admin: 11/06/18 12:28 Dose: 25 mls/hr Documented by: Lactated Ringer's (Lactated Ringers) 1,000 mls @ 125 mls/hr IV .Q8H [facility] Last Admin: 11/06/18 14:39 Dose: 125 mls/hr Documented by: Levothyroxine Sodium (Synthroid) 50 mcg PO DAILY@0630 [facility] Last Admin: 11/06/18 05:30 Dose: 50 mcg Documented by: Naloxone HCl (Narcan) 0.2 mg IV Q2M PRN PRN Reason: Opioid Reversal Naproxen (Naprosyn) 500 mg PO BID [facility] Last Admin: 11/06/18 08:27 Dose: 500 mg Documented by: Ondansetron HCl (Zofran) 4 mg IVP Q8HR PRN PRN Reason: Nausea And Vomiting Physical examination: VITAL SIGNS: 97.9, 70, 20, 122/78, 100% room air GENERAL: Laying in bed, tired appearing EYES: Pupils equal. Conjunctiva normal. HEENT: External appearance of nose and ears normal, oral cavity grossly normal. NECK: JVD not raised; masses not palpable. HEART: First and second heart sounds are normal; no edema. LUNGS: Respiratory rate normal; clear to auscultation. ABDOMEN: Soft, mild lower abdominal tenderness, no guarding or rigidity, liver spleen not palpable, no masses palpable. PSYCH: Alert and oriented x3; mood and affect normal. INVESTIGATIONS, reviewed in the clinical context: White count 7.9 hemoglobin 14.1 potassium 3.4 Previous testing: White count 12.1 hemoglobin 15.9 platelets 201 potassium 3.6 creatinine 0.59 KUB-unremarkable Assessment: -This is a patient presents with acute onset of lower abdominal cramping pain has got a white count, bloody stools diarrhea, tenderness on lower abdominal examination, clinical picture is compatible with acute colitis, slowly improving -Obesity BMI 30 4. 9 -essential hypertension -Hypothyroid -Hypokalemia from diarrhea Plan: Keep patient on IV fluids IV antibiotics. We'll keep the patient on clear liquids for now. We'll start full liquids in the morning. Replace potassium. Repeat labs in the morning.
[2018-11-06] MEDS: AMITRIPTYLINE HCL 10 MG TAB PO SCH (20:48)
--- NOTE | 2018-11-06 23:14 | P.CONS ---
History of Present Illness - Reason for Consult Consult date: 11/06/18 Blood per rectum Requesting physician: Daivd Astudillo - Chief Complaint BLood per rectum - History of Present Illness 58-year-old female with a medical history significant for hypothyroidism, hypertension and migraines who presented to the hospital with complaints of bright red blood per rectum. The patient reports initially having multiple episodes of loose watery bowel movements. She subsequently reports having multiple episodes of blood per rectum with the last occurring at noon today. She denies any abdominal pain but did have cramping in the lower abdomen. She also states that her abdomen is enrober tender. No prior episodes of similar episodes. The patient denies any sick contacts, or unusual foods, antibiotics or new medications prior to the episode. She does report a remote history of colonoscopy approximately 10 years ago which she believes was normal. She also reports prior EGD before having her bariatric surgery. KUB exam on presentation was negative for any acute abdomen. Laboratory evaluation was significant for a WBC 8.5, hemoglobin 13.3, platelet count 166,000, INR 1, total bilirubin 1.1, alkaline phosphatase 64, AST 24 and ALTs 21. Review of Systems REVIEW OF SYSTEMS: CONSTITUTIONAL: Denies any fevers, chills, weight change or fatigue. CARDIOVASCULAR: Denies any chest pain, palpitations high or low blood pressures RESPIRATORY: Denies any shortness of breath, hemoptysis or cough. GENITOURINARY: No dysuria or hematuria. MUSCULOSKELETAL: No weakness reported. SKIN: Denies any new rashes or lesions, jaundice or pallor. PSYCHIATRIC: Denies any depression or anxiety. NEUROLOGY: Denies headache, denies any new focal deficits. EARS/NOSE/THROAT: No recent hearing change, congestion, nasal discharge or sore throat. EYES: No pain in eyes, discharge or change in vision. GASTROINTESTINAL: As per HPI. Past Medical History Past Medical History: Hypertension, Pneumonia, Thyroid Disorder Additional Past Medical History / Comment(s): 09/07/14 Pt admitted to floor s/p revision total R knee arthroscopy. Other HX: migraines, hypothyroidism History of Any Multi-Drug Resistant Organisms: None Reported Past Surgical History: Appendectomy, Bariatric Surgery, Section, Hysterectomy, Joint Replacement, Orthopedic Surgery Additional Past Surgical History / Comment(s): 09/07/14 Revision total R knee arthroplasty. Additional SX: partial thyroidectomy, kyree knee replacements, rt knee arthroscopy, lap band Past Anesthesia/Blood Transfusion Reactions: No Reported Reaction Past Psychological History: No Psychological Hx Reported Additional Psychological History / Comment(s): Pt resides with her spouse. She is normally independent. She uses no assistive devices. She has no home care. She drives. Smoking Status: Former smoker Past Alcohol Use History: Occasional Additional Past Alcohol Use History / Comment(s): Pt quit smoking in 2009. Past Drug Use History: None Reported - Past Family History Father Family Medical History: Cancer Medications and Allergies Home Medications Medication Instructions Recorded Confirmed Type Acetaminophen Tab [Tylenol Tab] 1,000 mg PO Q6HR PRN 11/05/18 11/05/18 History Amitriptyline HCl [Elavil] 10 mg PO HS 11/05/18 11/05/18 History Diclofenac Sodium [Voltaren] 75 mg PO BID 11/05/18 11/05/18 History FLUoxetine HCL [PROzac] 40 mg PO DAILY 11/05/18 11/05/18 History Gabapentin [Neurontin] 200 mg PO TID 11/05/18 11/05/18 History Hydrochlorothiazide [Hydrodiuril] 50 mg PO DAILY 11/05/18 11/05/18 History Levothyroxine Sodium [Synthroid] 50 mcg PO DAILY 11/05/18 11/05/18 History Allergies Allergy/AdvReac Type Severity Reaction Status Date / Time oxycodone Allergy Dyspnea Verified 11/05/18 14:44 Sulfa (Sulfonamide Allergy Unknown Verified 11/05/18 14:44 Antibiotics) Physical Exam Vitals: Vital Signs Temp Pulse Pulse Resp BP BP Pulse Ox 11/06/18 08:00 20 11/06/18 04:30 97.9 F 70 20 122/78 100 11/05/18 20:06 97.5 F L 93 20 158/94 93 L 11/05/18 19:38 98.5 F 91 14 152/87 97 11/05/18 17:35 98.1 F 97 15 154/92 96 11/05/18 14:31 99.0 F 101 H 18 167/98 99 Intake and Output 11/05/18 11/06/18 11/06/18 22:59 06:59 14:59 Intake Total 200 200 Balance 200 200 Intake: Oral 200 200 Other: Voiding Method Toilet # Voids 1 1 On physical examination, patient appears comfortable in no apparent distress. HEAD: Normocephalic, atraumatic. EYES: No scleral icterus. No conjunctival injection. MOUTH: No lesions, tongue midline. NECK: Trachea midline, no gross abnormalities. CHEST: Clear to auscultation with no wheezing or rhonchi appreciated. HEART: Regular rate and rhythm. ABDOMEN: Soft, obese. Bowel sounds are positive. No organomegaly. No guarding or rigidity. EXTREMITIES: No pedal edema. SKIN: No rashes, no jaundice. NEUROLOGIC: Alert and oriented x3. No focal deficits. Results CBC & Chem 7: 11/06/18 11:02 11/06/18 07:19 Labs: Abnormal Lab Results - Last 24 Hours (Table) 11/05/18 11/05/18 11/05/18 Range/Units 15:35 15:35 15:35 WBC 12.1 H (3.8-10.6) k/uL Hct 47.6 H (34.0-46.0) % Neutrophils # 9.8 H (1.3-7.7) k/uL Potassium (3.5-5.1) mmol/L BUN 19 H (7-17) mg/dL Glucose 102 H (74-99) mg/dL Stool Occult Blood Positive H (Negative) 11/06/18 Range/Units 07:19 WBC (3.8-10.6) k/uL Hct (34.0-46.0) % Neutrophils # (1.3-7.7) k/uL Potassium 3.4 L (3.5-5.1) mmol/L BUN (7-17) mg/dL Glucose (74-99) mg/dL Stool Occult Blood (Negative) Abdominal x-ray: report reviewed (X-ray abdomen significant for a nonacute abdomen) Assessment and Plan (1) GI bleed Narrative/Plan: 58-year-old female with multiple medical comorbidities who presents with reports of diarrhea followed by painless bright red blood per rectum. Patient did report some lower abdominal cramping and is somewhat tender at this time. She reports a total of 4 episodes of bright red blood with clots per rectum. No prior episodes. No triggering events or exposures such as new medications, sick contacts, unusual foods or antibiotics. Hemoglobin was normal at 13 on presentation. Last colonoscopy approximately 10 years ago. Unknown etiology with suspicion for perirectal bleeding in the setting of viral or bacterial g astroenteritis likely hemorrhoidal in nature, differential also includes AVMs, diverticular bleed, or other etiology. Current Visit: Yes Status: Acute Code(s): K92.2 - GASTROINTESTINAL HEMORRHAGE, UNSPECIFIED SNOMED Code(s): 97535169 (2) Abdominal cramping Current Visit: Yes Status: Acute Code(s): R10.9 - UNSPECIFIED ABDOMINAL PAIN SNOMED Code(s): 830408586 Plan: Supportive care Clear liquid diet Nothing by mouth after midnight Continue to monitor hemoglobin and hematocrit and transfuse as needed Avoid NSAID therapy Avoid anticoagulation therapy at this time Plan for evaluation with colonoscopy tomorrow Bowel prep ordered for tonight Thank you for allowing us to participate in the care of the patient we will continue to follow
[2018-11-07] MEDS: LACTATED RINGERS 1,000 ML IV SCH ×3 (05:17→22:04)
[2018-11-07] MEDS: PIPERACILLIN-TAZOBACTAM 3.375 GM in SODIUM CHLORIDE 0.9% 100 ML IVPB SCH ×3 (05:17→22:03)
[2018-11-07] MEDS: LEVOTHYROXINE 50 MCG TAB PO SCH (05:17)
[2018-11-07] MEDS: GABAPENTIN 100 MG CAP PO SCH ×3 (07:09→22:04)
[2018-11-07] MEDS: NAPROXEN 250 MG TAB PO SCH (07:09)
[2018-11-07] MEDS: FLUoxetine HCL 20 MG CAP PO SCH (07:09)
[2018-11-07 10:07] LABS: HCT 38.4 % (34.0-46.0); HGB 13.3 gm/dL (11.4-16.0); MCH 33.4 pg (25.0-35.0); MCHC 34.7 g/dL (31.0-37.0); MCV 96.3 fL (80.0-100.0); Mean Platelet Volume 6.5; Platelet Count 152 k/uL (150-450); RBC 3.99 m/uL (3.80-5.40); RDW 13.6 % (11.5-15.5); WBC 8.7 k/uL (3.8-10.6)
[2018-11-07 10:25] LABS: African American GFR (CKD) >90 (>60 ml/min/1.73 sqM); Anion Gap 7 mmol/L; Blood Urea Nitrogen 12 mg/dL (7-17); Calcium 8.3 mg/dL (8.4-10.2); Carbon Dioxide 27 mmol/L (22-30); Chloride 106 mmol/L (98-107); Glucose 84 mg/dL (74-99); Potassium 3.5 mmol/L (3.5-5.1); Sodium 140 mmol/L (137-145)
[2018-11-07] MEDS ORDERED: IV FLUID CONTINUATION 1,000 ML IV ONE (14:08)
[2018-11-07] MEDS ORDERED: PROPOFOL 10 MG/ML 20 ML VIAL IV ONE ×2 (14:09)
--- NOTE | 2018-11-07 14:35 | P.PCN ---
Date of Procedure: 11/07/18 Procedure(s) Performed: BRIEF HISTORY: Patient is a 58-year-old pleasant white female, admitted hospital with acute lower GI bleed. She had multiple episodes of bright red blood per rectum for the last 2 days associated with lower abdominal pain. She is hence scheduled for colonoscopy to evaluate further. PROCEDURE PERFORMED: Colonoscopy with biopsies. PREOPERATIVE DIAGNOSIS: Lower abdominal pain/acute lower GI bleed. IV sedation per Anesthesia. PROCEDURE: After informed consent was obtained, the patient, was brought into the endoscopy unit. IV sedation was administered by Anesthesia under continuous monitoring. Digital rectal examination was normal. Initially the Olympus CF-160 flexible video colonoscope was then inserted in the rectum, gradually advanced into the cecum without any difficulty. Careful examination was performed as the scope was gradually being withdrawn. Ileocecal valve and the appendiceal orifice were visualized and appeared normal. Prep was excellent. Mucosa of the cecum, ascending colon, transverse colon, appeared normal. There were patchy areas of erythema with superficial areas of congested appearing mucosa in the proximal sigmoid colon and distal descending colon and descending from 40-60 cm from the anal verge consistent with mild ischemic colitis and biopsies were done from this area. The rest of the descending colon, sigmoid colon, and rectum appeared normal. Retroflexion was performed in the rectum and no lesions were seen. The patient tolerated the procedure well. IMPRESSION: Patchy areas of erythema and superficial areas of congested appearing mucosa in the proximal sigmoid colon and descending descending colon extending from 40-60 cm from the anal verge consistent with mild ischemic colitis. Rest of the colon appeared normal No evidence of colorectal neoplasia RECOMMENDATIONS: Findings of this examination were discussed with the patient as well as a family. She was advised to follow with the biopsy results. Diet will be advanced as tolerated. She will follow up in office in 2 weeks..
--- NOTE | 2018-11-07 20:51 | P.PN ---
Subjective This is a pleasant 58 years old female with past medical history of hypertension, hypothyroidism, obesity. Presents because of blood per rectum. A nd loose bowel movement. Patient was started on parenteral fluids and antibiotics. Patient showed interval improvement. Her fresh blood per rectum has stopped since the afternoon of 11/06/2018 as per patient. Patient has been evaluated by GI team, she underwent colonoscopy: possible mild ischemic colitis . Patient is tolerating that well. No nausea vomiting. No abdominal pain or tenderness. No more diarrhea or blood per rectum. She had frequent bowel movement secondary to a bowel preparation for her colonoscopy. Gait is normal. She denies chest pain or dyspnea. we will call surgical team for evaluation of pt tomorrow Objective - Vital Signs Vital signs: Vital Signs Temp 98.6 F 11/07/18 14:50 Pulse 81 11/07/18 16:40 Resp 16 11/07/18 14:50 BP 102/69 11/07/18 16:40 Pulse Ox 95 11/07/18 14:50 Intake & Output 11/07/18 11/07/18 11/08/18 06:59 18:59 06:59 Intake Total 200 200 Balance 200 200 Intake: IV 200 Oral 200 Other: Voiding Method Toilet # Voids 2 3 - Labs CBC & Chem 7: 11/07/18 09:50 11/07/18 09:50 Labs: Abnormal Lab Results - Last 24 Hours (Table) 11/07/18 Range/Units 09:50 Calcium 8.3 L (8.4-10.2) mg/dL Assessment and Plan Assessment: -mild ischemic colitis --Fresh blood per rectum on admission, status post colonoscopy -Possible colitis, present on admission. Improving -Essential hypertension -Hypothyroidism -Obesity Plan: pt is admitted with colitis vs ischemic colitis vs others. continue with antibiotic and iv fluid . call surgical team in the morning for evaluation . keep monitoring pt and symptoms and vitals. dvt and gi prophylaxis. further recommendation is based upon pt progress
[2018-11-07] MEDS: AMITRIPTYLINE HCL 10 MG TAB PO SCH (22:03)
[2018-11-07 23:13] VITALS: RESP 20
[2018-11-08] MEDS: PIPERACILLIN-TAZOBACTAM 3.375 GM in SODIUM CHLORIDE 0.9% 100 ML IVPB SCH (05:29)
[2018-11-08] MEDS: LACTATED RINGERS 1,000 ML IV SCH (05:31)
[2018-11-08 05:36] VITALS: BP 126/81; PULSE 71; TEMP 98.2
[2018-11-08] MEDS: LEVOTHYROXINE 50 MCG TAB PO SCH (06:08)
[2018-11-08] MEDS: GABAPENTIN 100 MG CAP PO SCH (08:25)
[2018-11-08] MEDS: FLUoxetine HCL 20 MG CAP PO SCH (08:25)
[2018-11-08 08:28] LABS: African American GFR (CKD) >90 (>60 ml/min/1.73 sqM); Anion Gap 5 mmol/L; Blood Urea Nitrogen 11 mg/dL (7-17); Calcium 8.3 mg/dL (8.4-10.2); Carbon Dioxide 28 mmol/L (22-30); Chloride 105 mmol/L (98-107); Glucose 96 mg/dL (74-99); Potassium 3.4 mmol/L (3.5-5.1); Sodium 138 mmol/L (137-145)
[2018-11-08] MEDS ORDERED: POTASSIUM CHLORIDE ER 20 MEQ TAB.ER PO STA (08:36)
--- NOTE | 2018-11-08 10:46 | P.GSCN ---
History of Present Illness Consult date: 11/08/18 History of present illness: The patient is a 58-year-old female we are asked to see regarding ischemic colitis. She states that on a few days ago, she began having lower abdominal pain and crampiness through the night and subsequent loose stools. She spent the majority the evening that night having bowel movements. She elected to go to work and wasn't feeling well. She left work and subsequently had multiple bloody bowel movements. She said there was minimal stool with the clotted blood. She then presented to the hospital. She underwent a colonoscopy which showed patchy ischemia. She has never had any issue like this before. She denies any food avoidance or fear. She denies any abdominal pain prior to any of this. Currently she has no more abdominal pain. Overall she is feeling much better than admission. She denies any sick contacts or new foods. She denies any medicines changes. She denies any chest pains, shortness of breath, nausea, vomiting or any further bloody bowel movements. Review of Systems 14 point review of systems performed, pertinent positives and negatives per the HPI Past Medical History Past Medical History: Hypertension, Pneumonia, Thyroid Disorder Additional Past Medical History / Comment(s): 09/07/14 Pt admitted to floor s/p revision total R knee arthroscopy. Other HX: migraines, hypothyroidism History of Any Multi-Drug Resistant Organisms: None Reported Past Surgical History: Appendectomy, Bariatric Surgery, Section, Hysterectomy, Joint Replacement, Orthopedic Surgery Additional Past Surgical History / Comment(s): 09/07/14 Revision total R knee arthroplasty. Additional SX: partial thyroidectomy, kyree knee replacements, rt knee arthroscopy, lap band Past Anesthesia/Blood Transfusion Reactions: No Reported Reaction Past Psychological History: No Psychological Hx Reported Additional Psychological History / Comment(s): Pt resides with her spouse. She is normally independent. She uses no assistive devices. She has no home care. She drives. Smoking Status: Former smoker Past Alcohol Use History: Occasional Additional Past Alcohol Use History / Comment(s): Pt quit smoking in 2009. Past Drug Use History: None Reported - Past Family History Father Family Medical History: Cancer Medications and Allergies Home Medications Medication Instructions Recorded Confirmed Type Acetaminophen Tab [Tylenol] 1,000 mg PO Q6HR PRN 11/05/18 11/05/18 History Amitriptyline HCl [Elavil] 10 mg PO HS 11/05/18 11/05/18 History Diclofenac Sodium [Voltaren] 75 mg PO BID 11/05/18 11/05/18 History FLUoxetine HCL [PROzac] 40 mg PO DAILY 11/05/18 11/05/18 History Gabapentin [Neurontin] 200 mg PO TID 11/05/18 11/05/18 History Hydrochlorothiazide [Hydrodiuril] 50 mg PO DAILY 11/05/18 11/05/18 History Levothyroxine Sodium [Synthroid] 50 mcg PO DAILY 11/05/18 11/05/18 History Amoxic-Pot Clav 875-125Mg 1 tab PO BID 3 Days #6 tab 11/08/18 Rx [Augmentin 875-125] Allergies Allergy/AdvReac Type Severity Reaction Status Date / Time oxycodone Allergy Dyspnea Verified 11/05/18 14:44 Sulfa (Sulfonamide Allergy Unknown Verified 11/05/18 14:44 Antibiotics) Surgical - Exam Vital Signs Temp Pulse Resp BP Pulse Ox 99.0 F 101 H 18 167/98 99 11/05/18 14:31 11/05/18 14:31 11/05/18 14:31 11/05/18 14:31 11/05/18 14:31 Genitals a pleasant cooperative female in no acute distress HEENT is normocephalic atraumatic extraocular motion intact. Neck is supple, trachea is midline. Heart is regular in rate and rhythm. Lungs are clear bilaterally. Abdomen is soft, obese, nontender, nondistended. Extremity show no clubbing cyanosis or edema. She has palpable radial femoral and dorsalis pedis pulses bilaterally although slightly weaker on the left pedal pulse. Cranial nerves II through XII grossly intact. Normal mood and affect. Skin without rashes Results - Labs 11/07/18 09:50 11/08/18 07:23 Abnormal Lab Results - Last 24 Hours (Table) 11/08/18 Range/Units 07:23 Potassium 3.4 L (3.5-5.1) mmol/L Calcium 8.3 L (8.4-10.2) mg/dL Diabetes panel 11/08/18 Range/Units 07:23 Sodium 138 (137-145) mmol/L Potassium 3.4 L (3.5-5.1) mmol/L Chloride 105 (98-107) mmol/L Carbon Dioxide 28 (22-30) mmol/L BUN 11 (7-17) mg/dL Creatinine 0.60 (0.52-1.04) mg/dL Glucose 96 (74-99) mg/dL Calcium 8.3 L (8.4-10.2) mg/dL Calcium panel 11/08/18 Range/Units 07:23 Calcium 8.3 L (8.4-10.2) mg/dL Pituitary panel 11/08/18 Range/Units 07:23 Sodium 138 (137-145) mmol/L Potassium 3.4 L (3.5-5.1) mmol/L Chloride 105 (98-107) mmol/L Carbon Dioxide 28 (22-30) mmol/L BUN 11 (7-17) mg/dL Creatinine 0.60 (0.52-1.04) mg/dL Glucose 96 (74-99) mg/dL Calcium 8.3 L (8.4-10.2) mg/dL Adrenal panel 11/08/18 Range/Units 07:23 Sodium 138 (137-145) mmol/L Potassium 3.4 L (3.5-5.1) mmol/L Chloride 105 (98-107) mmol/L Carbon Dioxide 28 (22-30) mmol/L BUN 11 (7-17) mg/dL Creatinine 0.60 (0.52-1.04) mg/dL Glucose 96 (74-99) mg/dL Calcium 8.3 L (8.4-10.2) mg/dL Assessment and Plan Assessment: #1 diarrhea, loose stoolsresolved #2 ischemic colitis #3Hypertension #4 hypothyroidism #5 migraines #6 morbid obesity status post gastric band Plan: At this point he does not appear to be any evidence of mesenteric ischemia or further vascular compromise per the patient history and clinical exam. She appears much better than how it sounded she was on admission. Currently no indication for any vascular surgical intervention. I believe she is fine for discharge. She should follow up with GI. She is welcome to follow up with us in the office although I do not think this is necessary given this focal event. Likely she had a GI bug and subsequent small vessel colonic ischemia rather than overt mesenteric ischemia
--- NOTE | 2018-11-08 11:58 | PN ---
PROGRESS NOTE DATE OF SERVICE: 11/08/2018 Patient is a 58-year-old pleasant white female who was admitted to the hospital with acute abdominal pain and lower GI bleed. She had a colonoscopy done yesterday that showed evidence of mild segmental colitis involving the left colon. She is doing much better. No abdominal pain. No nausea, vomiting. No further bleeding. PHYSICAL EXAMINATION: On physical examination, appears comfortable, no apparent distress. Vital signs are stable. Blood pressure 102/69, pulse rate 81, temperature 99.3. HEENT examination unremarkable. Conjunctivae pink. Sclerae anicteric. Oral cavity, no lesions. NECK: No JVD or lymph node enlargement. CHEST: Clear to auscultation. HEART: Regular rate and rhythm. ABDOMEN: Soft. Bowel sounds are positive. No organomegaly. EXTREMITIES: No pedal edema. SKIN: No rashes. NEURO: Alert and oriented x3. No focal deficits. LABS: Labs from today: Basic metabolic panel is normal. CBC is pending. IMPRESSION: Acute onset of lower abdominal pain followed by bloody diarrhea of one day duration. Colonoscopy done yesterday showed mild segmental colitis involving the descending colon and the proximal sigmoid colon consistent with ischemic colitis. The patient has no further symptoms, doing well. RECOMMENDATIONS: Discussed with the patient the colonoscopy findings. At this time we will await the biopsy results. She is tolerating diet well. She can be discharged home today with outpatient followup in 2 to 3 weeks. Thank you for this consultation. MMODL / IJN: [id number] /
--- NOTE | 2018-11-08 21:43 | P.DS ---
Providers Date of admission: 11/07/18 15:16 Attending physician: David Astudillo Consults: 11/05/18 17:21 Consult Physician Stat Consulting Provider: Devin Abreu Consult Reason/Comments: GI Bleed Do you want consulting provider notified?: Yes 11/08/18 08:29 Consult Physician Urgent Consulting Provider: Siri Peñaloza Consult Reason/Comments: ischemic colitis Do you want consulting provider notified?: Yes Primary care physician: [facility] Hospital Course: Diagnoses: -Fresh blood per rectum on admission, status post colonoscopy. stopped. hemoglobin stable and normal on discharge -Ischemic colitis, mild area seen on colonoscopy -Possible infectious colitis, present on admission. Improving -Essential hypertension -Hypothyroidism -Obesity Hospital course This is a pleasant 58 years old female with past medical history of hypertension, hypothyroidism, obesity. Presents because of blood per rectum. And loose bowel movement. Patient was started on parenteral fluids and anti biotics. Patient showed interval improvement. Her fresh blood per rectum has stopped since the afternoon of 11/06/2018 as per patient. Patient has been evaluated by GI team, she underwent colonoscopy: Showing mild ischemic colitis of the distal descending colon and proximal sigmoid colon. However patient's symptoms of abdominal pain is significantly improved and on the day of discharge she has very mild tenderness at LLQ abdomen with no rebound tenderness. She is tolerating diet well with no nausea vomiting. She did not have bowel movement yet but she is passing gases with no difficulty. And no more blood per rectum. Gait is normal. She denies chest pain or dyspnea. pt was eager to go home stating she feels well. Patient was cleared for discharge by GI team and vascular surgery Problems and management plan were discussed with the patient and he verbalized understanding and acceptance Patient was found stable and can be discharged home however he needs follow-up as an outpatient. Patient was instructed to follow up with her PCP and hot wire glass tube cutter within 1 week and she verbalized understanding and acceptance.pt agrees with appointment made for him with GI and pcp and their timing and states he will follow up. Gen: patient is a AAOx3, no distress CVS: S1-S2, RRR, no murmur Lungs: B/L CTA, no wheezing Abdomen: soft, no distention, no tenderness, positive bowel sounds Extremity: no leg edema or induration Time spent more than 35 minutes Patient Condition at Discharge: Serious Plan - Discharge Summary New Discharge Prescriptions: New Amoxic-Pot Clav 875-125Mg [Augmentin 875-125] 1 tab PO BID 3 Days #6 tab Continue Levothyroxine Sodium [Synthroid] 50 mcg PO DAILY Hydrochlorothiazide [Hydrodiuril] 50 mg PO DAILY Gabapentin [Neurontin] 200 mg PO TID FLUoxetine HCL [PROzac] 40 mg PO DAILY Diclofenac Sodium [Voltaren] 75 mg PO BID Amitriptyline HCl [Elavil] 10 mg PO HS Acetaminophen Tab [Tylenol] 1,000 mg PO Q6HR PRN PRN Reason: Pain Discharge Medication List Acetaminophen Tab [Tylenol] 1,000 mg PO Q6HR PRN 11/05/18 [History] Amitriptyline HCl [Elavil] 10 mg PO HS 11/05/18 [History] Diclofenac Sodium [Voltaren] 75 mg PO BID 11/05/18 [History] FLUoxetine HCL [PROzac] 40 mg PO DAILY 11/05/18 [History] Gabapentin [Neurontin] 200 mg PO TID 11/05/18 [History] Hydrochlorothiazide [Hydrodiuril] 50 mg PO DAILY 11/05/18 [History] Levothyroxine Sodium [Synthroid] 50 mcg PO DAILY 11/05/18 [History] Amoxic-Pot Clav 875-125Mg [Augmentin 875-125] 1 tab PO BID 3 Days #6 tab 11/08/18 [Rx] Follow up Appointment(s)/Referral(s): El Morales MD [Primary Care Provider] - 11/10/18 1:20 pm Siri Peñaloza DO [STAFF PHYSICIAN] - 2 Weeks (Vascular surgery) Liliya Lopez MD [STAFF PHYSICIAN] - 11/17/18 4:00 pm Sd Bolton MD [Medical Doctor] - 1 Week Patient Instructions/Handouts: Colitis (ED) Activity/Diet/Wound Care/Special Instructions: Soft bland diet Activity as tolerated. Discharge Disposition: HOME SELF-CARE
== END 2018-11-08 11:51 | disposition home or self-care (01) | DRG 395 ==
LOC: EC 14:27 → 4MS4W 17:06 → OBSVTOIN 11-07 15:16
PROVIDERS: ADMIT Hospitalist; ATTEND Hospitalist
PROC: 0DBM8ZX Excision of Descending Colon, Via Natural or Artificial Opening Endoscopic, Diagnostic (ICD-10-PCS; principal; 2018-11-07 07:30)
DX: K55.039 Acute (reversible) ischemia of large intestine, extent unspecified (principal); E66.01 Morbid (severe) obesity due to excess calories; I10 Essential (primary) hypertension; E03.9 Hypothyroidism, unspecified; E87.6 Hypokalemia; G43.909 Migraine, unspecified, not intractable, without status migrainosus; Z68.34 Body mass index [BMI] 34.0-34.9, adult; M54.5 Low back pain; Z79.890 Hormone replacement therapy; Z79.899 Other long term (current) drug therapy; Z87.891 Personal history of nicotine dependence; Z90.49 Acquired absence of other specified parts of digestive tract; Z90.710 Acquired absence of both cervix and uterus; Z96.653 Presence of artificial knee joint, bilateral; Z98.84 Bariatric surgery status; Z98.891 History of uterine scar from previous surgery; Z87.01 Personal history of pneumonia (recurrent); Z98.890 Other specified postprocedural states; Z88.2 Allergy status to sulfonamides; Z88.5 Allergy status to narcotic agent; Z80.9 Family history of malignant neoplasm, unspecified
CPT/HCPCS: 36415; 45380; 74018; 80048; 80053; 82272; 83605; 83690; 85025; 85027; 85610; 85730; 88305; 96361; 96374; 96375; 96376; 99285

== ENCOUNTER 2018-11-27 18:02 | Emergency (ER) | payer BC ==
[2018-11-27] MEDS ORDERED: SULFAMETHOX-TMP 800-160MG 1 EACH TAB PO STA (19:10)
[2018-11-27] MEDS ORDERED: SULFAMETH-TMP DS STARTER PACK 2 TAB BTL PO STA (19:10)
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
[2018-11-27 20:07] VITALS: BP 120/78; PULSE 72; RESP 18; TEMP 98
== END 2018-11-27 20:06 | disposition home or self-care (01) ==
LOC: EC 18:02
DX: T24.031D Burn of unspecified degree of right lower leg, subsequent encounter (principal); I10 Essential (primary) hypertension; E03.9 Hypothyroidism, unspecified; Z87.891 Personal history of nicotine dependence; Z88.5 Allergy status to narcotic agent; Z79.1 Long term (current) use of non-steroidal anti-inflammatories (NSAID); Z79.890 Hormone replacement therapy; Z79.899 Other long term (current) drug therapy; Z86.69 Personal history of other diseases of the nervous system and sense organs; Z96.653 Presence of artificial knee joint, bilateral; X10.1XXD Contact with hot food, subsequent encounter
CPT/HCPCS: 99283

== ENCOUNTER 2019-01-26 08:55 | Emergency (ER) | payer BC ==
[2019-01-26 09:04] VITALS: BP 164/92; PULSE 72; RESP 18; TEMP 98.4
[2019-01-26] MEDS ORDERED: KETOROLAC 60 MG/2 ML VIAL IM STA (09:14)
--- NOTE | 2019-01-26 09:19 | ED ---
Back Pain HPI - General Chief Complaint: Back Pain/Injury Stated Complaint: fall/back pain Time Seen by Provider: 01/26/19 09:04 Source: patient Limitations: no limitations - History of Present Illness Initial Comments: Patient is a 58-year-old female presenting to the emergency Department with complaints of right-sided low back pain after falling at her house yesterday. Patient states she went to walk her dog yesterday morning when she took a first step down her porch steps and slipped backwards. Patient states she had mostly the right side of her low back and gluteal area. Patient states she was feeling okay yesterday other than some soreness. Patient states today she has an increase in soreness and tightness. Patient states she took some Tylenol and Flexeril yesterday which did help some but is did not take anything else today. Patient denies hitting anything else during this fall, she did not hit her head, she is not on blood thinners. Patient has no other complaints at this time. Patient denies previous surgeries or injuries to her back. Denies fever, lower extremity numbness and tingling. Upon arrival to the ER, vital signs are stable. - Related Data Home Medications Medication Instructions Recorded Confirmed Acetaminophen Tab [Tylenol] 1,000 mg PO Q6HR PRN 11/05/18 11/05/18 Amitriptyline HCl [Elavil] 10 mg PO HS 11/05/18 11/05/18 Diclofenac Sodium [Voltaren] 75 mg PO BID 11/05/18 11/05/18 FLUoxetine HCL [PROzac] 40 mg PO DAILY 11/05/18 11/05/18 Gabapentin [Neurontin] 200 mg PO TID 11/05/18 11/05/18 Hydrochlorothiazide [Hydrodiuril] 50 mg PO DAILY 11/05/18 11/05/18 Levothyroxine Sodium [Synthroid] 50 mcg PO DAILY 11/05/18 11/05/18 Previous Rx's Medication Instructions Recorded Amoxic-Pot Clav 875-125Mg 1 tab PO BID 3 Days #6 tab 11/08/18 [Augmentin 875-125] Bacitracin Oint 28.4 gm TOPICAL BID 14 Days #1 tube 11/27/18 Sulfamethox-Tmp 800-160Mg [Bactrim 1 tab PO Q12HR #20 tab 11/27/18 DS 800-160 mg] Allergies Allergy/AdvReac Type Severity Reaction Status Date / Time oxycodone Allergy Dyspnea Verified 01/26/19 09:01 Review of Systems ROS Statement: Those systems with pertinent positive or pertinent negative responses have been documented in the HPI. ROS Other: All systems not noted in ROS Statement are negative. Past Medical History Past Medical History: Hypertension, Pneumonia, Thyroid Disorder Additional Past Medical History / Comment(s): 09/07/14 Pt admitted to floor s/p revision total R knee arthroscopy. Other HX: migraines, hypothyroidism History of Any Multi-Drug Resistant Organisms: None Reported Past Surgical History: Appendectomy, Bariatric Surgery, Section, Hysterectomy, Joint Replacement, Orthopedic Surgery Additional Past Surgical History / Comment(s): 09/07/14 Revision total R knee arthroplasty. Additional SX: partial thyroidectomy, kyree knee replacements, rt knee arthroscopy, lap band Past Anesthesia/Blood Transfusion Reactions: No Reported Reaction Past Psychological History: No Psychological Hx Reported Smoking Status: Former smoker Past Alcohol Use History: Occasional Past Drug Use History: None Reported - Past Family History Father Family Medical History: Cancer General Exam - General Exam Comments Initial Comments: GENERAL: Well-appearing, well-nourished and in no acute distress. HEAD: Atraumatic, normocephalic. EYES: Pupils equal round and reactive to light, extraocular movements intact, sclera anicteric, conjunctiva are normal. ENT: Moist mucous membranes. NECK: Normal range of motion, supple without lymphadenopathy or JVD. LUNGS: Breath sounds clear to auscultation bilaterally and equal. No wheezes rales or rhonchi. HEART: Regular rate and rhythm without murmurs, rubs or gallops. ABDOMEN: Soft, nontender, normoactive bowel sounds. No guarding, no rebound. No masses appreciated. Mild tenderness to palpation of the right lumbar paraspinals as well as sciatic area. Patient has slightly decreased trunk flexion secondary to pain. Rest of trunk range of motion is within normal limits. EXTREMITIES: Normal range of motion, no pitting or edema. No clubbing or cyanosis. Patient has 5 out of 5 strength in lower extremities, sensation is equal and bilateral. NEUROLOGICAL: Normal speech, normal gait. PSYCH: Normal mood, normal affect. SKIN: Warm, Dry, normal turgor, no rashes or lesions noted. Limitations: no limitations Course Vital Signs 01/26/19 09:01 Temperature 98.4 F Pulse Rate 72 Respiratory 18 Rate Blood Pressure 164/92 O2 Sat by Pulse 97 Oximetry Medical Decision Making - Medical Decision Making Patient is a 58-year-old female complaining of right-sided low back pain after falling on her steps yesterday. Vital signs are stable. Patient has no red flag symptoms. X-rays reveal no acute fractures or dislocations. Patient was given Toradol injection before DC. Patient will continue with ice and/or heat to the area as well as Flexeril. Patient continued continue with Motrin or Tylenol for pain relief. Patient is stable for discharge at this time and she is in agreement with this plan care. Return parameters were discussed with the patient she verbalized understanding. Patient will follow up with PCP if symptoms persist after one week. Disposition Clinical Impression: Lower back pain, Fall Disposition: HOME SELF-CARE Condition: Stable Instructions (If sedation given, give patient instructions): Acute Low Back Pain (ED) Additional Instructions: Please return to the Emergency Department if symptoms worsen or any other concerns. Continue with anti-inflammatories as discussed. May take Flexeril as that you have at home. Use heat and/or ice to the area. Follow-up with PCP in one week if symptoms are persisting. Is patient prescribed a controlled substance at d/c from ED?: No Referrals: El Morales MD [Primary Care Provider] - 1-2 days
--- NOTE | 2019-01-26 09:51 | XR ---
EXAMINATION TYPE: XR lumbar spine 2 or 3V DATE OF EXAM: 01/26/2019 CLINICAL HISTORY: Fall with subsequent back pain TECHNIQUE: Frontal and lateral images of the lumbar spine are obtained. COMPARISON: None FINDINGS: There are 5 lumbar type vertebral bodies identified. There is a levoscoliosis of the lumba r spine and advanced degenerative disc disease throughout. Very minimal grade 1 anterolisthesis of L4 on L5 and retrolisthesis of L3 on L4, likely on a degenerative basis. The lumbar spine shows satisfa ctory alignment without evidence of acute fracture or dislocation. Vertebral body heights are within normal limits. The overlying soft tissue appears unremarkable. Gastric lap band is partially visualiz ed. IMPRESSION: 1. No acute fracture is seen in the lumbar spine. 2. Advanced degenerative disc disease of the lumbar spine with multilevel malalignment likely on a de generative basis and levoscoliosis of the lumbar spine.
== END 2019-01-26 10:25 | disposition home or self-care (01) ==
LOC: EC 08:55
DX: M54.5 Low back pain (principal); I10 Essential (primary) hypertension; E03.9 Hypothyroidism, unspecified; Z87.891 Personal history of nicotine dependence; Z88.5 Allergy status to narcotic agent; Z79.1 Long term (current) use of non-steroidal anti-inflammatories (NSAID); Z79.890 Hormone replacement therapy; Z79.899 Other long term (current) drug therapy; Z86.69 Personal history of other diseases of the nervous system and sense organs; W00.1XXA Fall from stairs and steps due to ice and snow, initial encounter; Y93.K1 Activity, walking an animal; Y92.009 Unspecified place in unspecified non-institutional (private) residence as the place of occurrence of the external cause
CPT/HCPCS: 72100; 99283; 96372; J1885

== ENCOUNTER → 2019-08-20 | Outpatient (CLI) | payer BC ==
--- NOTE | 2019-08-20 11:00 | MM ---
Reason for exam: additional evaluation requested from prior study. Last mammogram was performed 1 year and 4 months ago. History: Patient is postmenopausal. Physical Findings: Nurse did not find any significant physical abnormalities on exam. MG Diagnostic Mammo w CAD KATHRIN Bilateral CC and MLO view(s) were taken. Prior study comparison: April 14, 2018, bilateral MG screening mammo w CAD. November 25, 2010, bilateral digital screening mammo w/CAD. The breast tissue is heterogeneously dense. This may lower the sensitivity of mammography. There is chronic nodularity in the right breast. No significant new findings when compared with previous films. These results were verbally communicated with the patient and result sheet given to the patient on 08/20/19. ASSESSMENT: Benign, BI-RAD 2 RECOMMENDATION: Routine screening mammogram of both breasts in 1 year.
== END | disposition home or self-care (01) ==
LOC: RADMAMWWP 09:32
PROVIDERS: ATTEND Family Medicine
DX: R92.8 Other abnormal and inconclusive findings on diagnostic imaging of breast (principal)
CPT/HCPCS: 77066

== ENCOUNTER → 2020-07-15 | Outpatient (CLI) | payer BC ==
[2020-07-15 14:59] LABS: HCT 41.6 % (37.2-46.3); MCH 32.6 pg (27.0-32.0); MCHC 33.7 g/dL (32.0-37.0); Mean Platelet Volume 9.7 fL (9.5-12.2); Platelet Count 234 X 10*3/uL (140-440); RBC 4.29 X 10*6/uL (4.10-5.20); RDW 13.6 % (11.5-14.5); WBC 6.33 X 10*3/uL (4.50-10.00)
[2020-07-15 15:46] LABS: African American GFR (CKD) 107.6 (60.0-200.0); Albumin 4.3 g/dL (3.80-4.90); Albumin/Globulin Ratio 2.05 (1.60-3.17); Anion Gap 7.9 mmol/L (4.00-12.00); BUN/Creat Ratio 22.86 Ratio (12.00-20.00); Carbon Dioxide 30.1 mmol/L (21.6-31.8); Chol/HDL Ratio 3.07; Globulin 2.1 g/dL (1.6-3.3); LDL Cholesterol,Calculated 136.6 mg/dL (0.0-131.0); Non-African American GFR(CKD) 92.9 (60.0-200.0); Potassium 3.9 mmol/L (3.5-5.5); Total Bilirubin 0.9 mg/dL (0.2-1.2); Total Protein 6.4 g/dL (6.2-8.2); VLDL Calculation 33.4 mg/dL (5.00-40.00)
[2020-07-15 15:53] LABS: T4, Free (Free Thyroxine) 1.4 ng/dL (0.80-1.80)
== END | disposition home or self-care (01) ==
LOC: LABWHC1 08:54
PROVIDERS: ATTEND Family Medicine
DX: Z00.00 Encounter for general adult medical examination without abnormal findings (principal); E03.9 Hypothyroidism, unspecified
CPT/HCPCS: 36415; 80053; 80061; 84439; 84443; 84481; 85027

== ENCOUNTER 2021-05-10 09:10 | Day surgery (SDC) | payer BC ==
[2021-05-08 14:19] VITALS: BMI 33.5
[~2021-05-10 09:10] MED LIST: LACTATED RINGERS 1,000 ML IV SCH; LIDOCAINE 1% (10MG/ML) FOR IV START INTRADERMA PRN
[2021-05-10] MEDS ORDERED: LIDOCAINE 1% (10MG/ML) FOR IV START INTRADERMA PRN (09:29)
[2021-05-10] MEDS ORDERED: LACTATED RINGERS 1,000 ML IV SCH (09:29)
[2021-05-10 10:52] VITALS: TEMP 97.5
[2021-05-10] MEDS ORDERED: LIDOCAINE 1% INJ 10MG/ML (20 ML MDV) ONE (11:25)
[2021-05-10] MEDS ORDERED: PROPOFOL 10 MG/ML 20 ML VIAL IV ONE (11:25)
--- NOTE | 2021-05-10 11:52 | P.PCN ---
Date of Procedure: 05/10/21 Procedure(s) Performed: BRIEF HISTORY: Patient is a 60-year-old pleasant white female scheduled for an elective colonoscopy as a part of evaluation of intermittent lower abdominal pain associated with diarrhea and rectal bleeding for the last 1-2 years duration. PROCEDURE PERFORMED: Colonoscopy with random biopsy. PREOPERATIVE DIAGNOSIS: Intermittent lower abdominal pain and chronic diarrhea and intermittent rectal bleeding. IV sedation per Anesthesia. PROCEDURE: After informed consent was obtained, the patient, was brought into the endoscopy unit. IV sedation was administered by Anesthesia under continuous monitoring. Digital rectal examination was normal. Initially the Olympus CF-160 flexible video colonoscope was then inserted in the rectum, gradually advanced into the cecum without any difficulty. Careful examination was performed as the scope was gradually being withdrawn. Ileocecal valve and the appendiceal orifice were visualized and appeared normal. Prep was excellent. Mucosa of the cecum, ascending colon, transverse colon, descending colon, sigmoid colon, and rectum appeared normal. Retroflexion was performed in the rectum and small internal hemorrhoids were seen. random biopsies were done from ascending and descending colon to rule out colonoscopy/collagenous colitis. The patient tolerated the procedure well. IMPRESSION: Normal-appearing colon from rectum to cecum no evidence of colitis or colorectal neoplasia . RECOMMENDATIONS: Findings of this examination were discussed with the patient . She was advised to follow with the biopsy results and continue with Bentyl 10 mg 3 times daily as needed and follow up in office in 3-4 weeks.
[2021-05-10 11:56] VITALS: RESP 14
[2021-05-10 12:10] VITALS: BP 115/71; PULSE 77
== END 2021-05-10 12:52 | disposition home or self-care (01) ==
LOC: ORWHC2ENDO 09:10
PROVIDERS: ATTEND Internal Medicine Gastroenterology
DX: K52.9 Noninfective gastroenteritis and colitis, unspecified (principal); R10.30 Lower abdominal pain, unspecified; K62.5 Hemorrhage of anus and rectum; I10 Essential (primary) hypertension; E04.1 Nontoxic single thyroid nodule; Z90.710 Acquired absence of both cervix and uterus; Z79.890 Hormone replacement therapy; Z79.899 Other long term (current) drug therapy; Z88.5 Allergy status to narcotic agent
CPT/HCPCS: 88305; 45380; J2001; J2704

== ENCOUNTER → 2021-06-07 | Outpatient (CLI) | payer BC ==
[2021-06-07 14:41] LABS: HCT 43.2 % (37.2-46.3); HGB 14.6 g/dL (12.0-15.0); MCH 33.3 pg (27.0-32.0); MCHC 33.8 g/dL (32.0-37.0); MCV 98.4 fL (80.0-97.0); Mean Platelet Volume 9.9 fL (9.5-12.2); NRBC Per 100 WBC 0 /100 WBCS (0.0-0.0); Platelet Count 278 X 10*3/uL (140-440); RBC 4.39 X 10*6/uL (4.10-5.20); WBC 12.38 X 10*3/uL (4.50-10.00)
[2021-06-07 14:59] LABS: ALT 18 U/L (8-44); AST 24 U/L (13-35); African American GFR (CKD) 100.1 (60.0-200.0); Albumin 4.6 g/dL (3.8-4.9); Alkaline Phosphatase 72 U/L (41-126); BUN/Creat Ratio 25.03 Ratio (12.00-20.00); Blood Urea Nitrogen 18.6 mg/dL (9.0-27.0); Calcium 9.7 mg/dL (8.7-10.3); Carbon Dioxide 23.3 mmol/L (20.0-27.5); Chloride 101 mmol/L (96-109); Chol/HDL Ratio 3.19 Ratio; Globulin 2.4 g/dL (1.6-3.3); Glucose 122 mg/dL (70-110); LDL Cholesterol,Calculated 164.7 mg/dL (0.0-131.0); Non-African American GFR(CKD) 86.4 (60.0-200.0); Potassium 3.8 mmol/L (3.5-5.5); Sodium 141 mmol/L (135-145); VLDL Calculation 19.88 mg/dL (5.00-40.00)
== END | disposition home or self-care (01) ==
LOC: LABWHC1 10:04
PROVIDERS: ATTEND Family Medicine
DX: Z00.00 Encounter for general adult medical examination without abnormal findings (principal); E03.9 Hypothyroidism, unspecified
CPT/HCPCS: 36415; 80053; 80061; 84439; 84443; 84481; 85027

== ENCOUNTER 2022-01-04 05:59 | Observation (INO) | payer BC ==
[2022-01-04 06:33] LABS: Basophils # (A) 0.1 k/uL (0-0.2); Basophils % (A) 1 %; Eosinophils # (A) 0.2 k/uL (0-0.7); Eosinophils % (A) 3 %; HCT 42.9 % (34.0-46.0); HGB 15.5 gm/dL (11.4-16.0); Lymphocytes # (A) 1.7 k/uL (1.0-4.8); Lymphocytes % (A) 25 %; MCHC 36.2 g/dL (31.0-37.0); MCV 96.6 fL (80.0-100.0); Mean Platelet Volume 7.4; Monocytes # (A) 0.3 k/uL (0-1.0); Monocytes % (A) 4 %; Neutrophils # (A) 4.2 k/uL (1.3-7.7); Neutrophils % (A) 65 %; Platelet Count 222 k/uL (150-450); RBC 4.44 m/uL (3.80-5.40); WBC 6.6 k/uL (3.8-10.6)
[2022-01-04 06:34] LABS: Glucose,Whole Blood 97 mg/dL (70-110)
--- NOTE | 2022-01-04 06:34 | ED ---
Altered Mental Status HPI - General Chief Complaint: Altered Mental Status Stated Complaint: Memory Loss, Disoriented Time Seen by Provider: 01/04/22 06:01 Source: patient, RN notes reviewed Mode of arrival: ambulatory Limitations: no limitations - History of Present Illness Initial Comments: This is a 61-year-old female presents emergency Department chief complaint of confusion. Patient states that she woke up this morning and states that she was disorientated she states that she did not know her was in which she called her and he was at work in which he was supposed be at work. Patient's states that she seemed to be confused and the phone and which he came home at that time. Patient had episode like this several years ago and patient stated that she had an episode time that she does not remember. Patient denies any headache dizziness blurred vision no focal weakness patient denies any chest pain shortness of breath she does take hypertension meds, Prozac, Synthroid. Patient is back at her baseline she has no complaints denies ever having anywill facial deficits, extremity weakness denies any blood thinners. - Related Data Home Medications Medication Instructions Recorded Confirmed Acetaminophen Tab [Tylenol] 1,000 mg PO DAILY 11/05/18 01/04/22 Diclofenac Sodium [Voltaren] 75 mg PO DAILY 11/05/18 01/04/22 FLUoxetine HCL [PROzac] 40 mg PO DAILY 11/05/18 01/04/22 hydroCHLOROthiazide [Hydrodiuril] 50 mg PO DAILY 11/05/18 01/04/22 amLODIPine BESYLATE/BENAZEPRIL 1 cap PO DAILY 05/09/21 01/04/22 [Lotrel 5-20 MG] Levothyroxine Sodium [Synthroid] 50 mcg PO DAILY 01/04/22 01/04/22 Allergies Allergy/AdvReac Type Severity Reaction Status Date / Time oxycodone Allergy Dyspnea & Verified 01/04/22 07:46 Confusion Sulfa (Sulfonamide Allergy "Turns Red" Verified 01/04/22 07:46 Antibiotics) Review of Systems ROS Statement: Those systems with pertinent positive or pertinent negative responses have been documented in the HPI. ROS Other: All systems not noted in ROS Statement are negative. Past Medical History Past Medical History: GI Bleed, Hypertension, Thyroid Disorder Additional Past Medical History / Comment(s): hx thyroid nodules., gi bleed (2019)., current blood in stool History of Any Multi-Drug Resistant Organisms: None Reported Past Surgical History: Appendectomy, Bariatric Surgery, Section, Hysterectomy, Joint Replacement, Orthopedic Surgery Additional Past Surgical History / Comment(s): 09/07/14 Revision total R knee arthroplasty. partial thyroidectomy, kyree knee replacements, rt knee arthroscopy, lap band, states 5 knee replacements. Past Anesthesia/Blood Transfusion Reactions: No Reported Reaction Past Psychological History: No Psychological Hx Reported Smoking Status: Former smoker Past Alcohol Use History: Occasional Past Drug Use History: None Reported - Past Family History Father Family Medical History: Cancer Additional Family Medical History / Comment(s): MELANOMA General Exam Limitations: no limitations General appearance: alert, in no apparent distress Head exam: Present: atraumatic, normocephalic, normal inspection Eye exam: Present: normal appearance, PERRL, EOMI. Absent: scleral icterus, conjunctival injection, periorbital swelling ENT exam: Present: normal exam, normal oropharynx, mucous membranes moist Neck exam: Present: normal inspection, full ROM. Absent: tenderness, meningismus, lymphadenopathy Respiratory exam: Present: normal lung sounds bilaterally. Absent: respiratory distress, wheezes, rales, rhonchi, stridor Cardiovascular Exam: Present: regular rate, normal rhythm, normal heart sounds. Absent: systolic murmur, diastolic murmur, rubs, gallop, clicks Neurological exam: Present: alert, oriented X3, CN II-XII intact, reflexes normal, other (NIH 0, GCS 15). Absent: motor sensory deficit Skin exam: Present: warm, dry, intact, normal color. Absent: rash Course Vital Signs 01/04/22 01/04/22 01/04/22 06:03 07:00 08:00 Temperature 98.9 F Pulse Rate 77 71 75 Respiratory 16 16 18 Rate Blood Pressure 134/90 130/45 112/82 O2 Sat by Pulse 98 97 95 Oximetry Medical Decision Making - Medical Decision Making 61-year-old presented for an episode of disorientation, confusion, concerning TIA symptoms. Patient's workup is negative patient be admitted for neurology evaluation. - Lab Data Result diagrams: 01/04/22 06:25 01/04/22 06:25 Lab Results 01/04/22 01/04/22 01/04/22 Range/Units 06:25 06:25 06:25 WBC 6.6 (3.8-10.6) k/uL RBC 4.44 (3.80-5.40) m/uL Hgb 15.5 (11.4-16.0) gm/dL Hct 42.9 (34.0-46.0) % MCV 96.6 (80.0-100.0) fL MCH 35.0 (25.0-35.0) pg MCHC 36.2 (31.0-37.0) g/dL RDW 13.0 (11.5-15.5) % Plt Count 222 (150-450) k/uL MPV 7.4 Neutrophils % 65 % Lymphocytes % 25 % Monocytes % 4 % Eosinophils % 3 % Basophils % 1 % Neutrophils # 4.2 (1.3-7.7) k/uL Lymphocytes # 1.7 (1.0-4.8) k/uL Monocytes # 0.3 (0-1.0) k/uL Eosinophils # 0.2 (0-0.7) k/uL Basophils # 0.1 (0-0.2) k/uL PT 10.1 (9.0-12.0) sec INR 0.9 (<1.2) APTT 23.8 (22.0-30.0) sec Sodium 136 L (137-145) mmol/L Potassium 3.5 (3.5-5.1) mmol/L Chloride 101 (98-107) mmol/L Carbon Dioxide 27 (22-30) mmol/L Anion Gap 8 mmol/L BUN 22 H (7-17) mg/dL Creatinine 0.70 (0.52-1.04) mg/dL Est GFR (CKD-EPI)AfAm >90 (>60 ml/min/1.73 sqM) Est GFR (CKD-EPI)NonAf >90 (>60 ml/min/1.73 sqM) Glucose 98 (74-99) mg/dL POC Glucose (mg/dL) (70-110) mg/dL POC Glu [employer] ID Calcium 9.2 (8.4-10.2) mg/dL Total Bilirubin 0.5 (0.2-1.3) mg/dL AST 26 (14-36) U/L ALT 22 (4-34) U/L Alkaline Phosphatase 102 (38-126) U/L Ammonia (<30) umol/L Troponin I (0.000-0.034) ng/mL Total Protein 7.2 (6.3-8.2) g/dL Albumin 4.6 (3.5-5.0) g/dL 01/04/22 01/04/22 01/04/22 Range/Units 06:25 06:25 06:32 WBC (3.8-10.6) k/uL RBC (3.80-5.40) m/uL Hgb (11.4-16.0) gm/dL Hct (34.0-46.0) % MCV (80.0-100.0) fL MCH (25.0-35.0) pg MCHC (31.0-37.0) g/dL RDW (11.5-15.5) % Plt Count (150-450) k/uL MPV Neutrophils % % Lymphocytes % % Monocytes % % Eosinophils % % Basophils % % Neutrophils # (1.3-7.7) k/uL Lymphocytes # (1.0-4.8) k/uL Monocytes # (0-1.0) k/uL Eosinophils # (0-0.7) k/uL Basophils # (0-0.2) k/uL PT (9.0-12.0) sec INR (<1.2) APTT (22.0-30.0) sec Sodium (137-145) mmol/L Potassium (3.5-5.1) mmol/L Chloride (98-107) mmol/L Carbon Dioxide (22-30) mmol/L Anion Gap mmol/L BUN (7-17) mg/dL Creatinine (0.52-1.04) mg/dL Est GFR (CKD-EPI)AfAm (>60 ml/min/1.73 sqM) Est GFR (CKD-EPI)NonAf (>60 ml/min/1.73 sqM) Glucose (74-99) mg/dL POC Glucose (mg/dL) 97 (70-110) mg/dL POC Glu [employer] ID Nini Castillo Calcium (8.4-10.2) mg/dL Total Bilirubin (0.2-1.3) mg/dL AST (14-36) U/L ALT (4-34) U/L Alkaline Phosphatase (38-126) U/L Ammonia <9 (<30) umol/L Troponin I <0.012 (0.000-0.034) ng/mL Total Protein (6.3-8.2) g/dL Albumin (3.5-5.0) g/dL Disposition Clinical Impression: TIA (transient ischemic attack), Transient amnesia Disposition: ADMITTED IP TO THIS HOSP Condition: Fair Referrals: El Morales MD [Primary Care Provider] - 1-2 days Time of Disposition: 09:00
[2022-01-04 06:42] LABS: INR 0.9 (<1.2); Partial Thromboplastin Time 23.8 sec (22.0-30.0); Prothrombin Time 10.1 sec (9.0-12.0)
[2022-01-04 06:44] LABS: ALT 22 U/L (4-34); AST 26 U/L (14-36); African American GFR (CKD) >90 (>60 ml/min/1.73 sqM); Albumin 4.6 g/dL (3.5-5.0); Alkaline Phosphatase 102 U/L (38-126); Anion Gap 8 mmol/L; Blood Urea Nitrogen 22 mg/dL (7-17); Calcium 9.2 mg/dL (8.4-10.2); Carbon Dioxide 27 mmol/L (22-30); Chloride 101 mmol/L (98-107); Glucose 98 mg/dL (74-99); Non-African American GFR(CKD) >90 (>60 ml/min/1.73 sqM); Potassium 3.5 mmol/L (3.5-5.1); Sodium 136 mmol/L (137-145); Total Bilirubin 0.5 mg/dL (0.2-1.3); Total Protein 7.2 g/dL (6.3-8.2)
--- NOTE | 2022-01-04 06:51 | XR ---
EXAMINATION TYPE: XR chest 2V DATE OF EXAM: 01/04/2022 COMPARISON: 03/24/2018 HISTORY: Altered mental status TECHNIQUE: 2 views FINDINGS: Heart and mediastinum are normal. Lungs are clear. Diaphragm is normal. Bony thorax is inta ct. IMPRESSION: Normal chest. No change.
--- NOTE | 2022-01-04 08:45 | CT ---
EXAMINATION TYPE: CT brain wo con CT DLP: Confusion mGycm, Automated exposure control for dose reduction was used. DATE OF EXAM: 01/04/2022 8:35 AM COMPARISON: Prior CT Brain from 03/24/2018. CLINICAL INDICATION:Female, 61 years old with history of confusion, 1068.4 TECHNIQUE: Brain: Multiple axial CT images of the brain were obtained without IV contrast. Coronal and sagittal reformats reviewed. FINDINGS: Brain: Extra-axial spaces: No abnormal extra-axial fluid collections. Ventricular system: Within normal limits Cerebral parenchyma: No acute intraparenchymal hemorrhage or mass effect. The alder-white junction is well differentiated. Scattered hypoattenuating areas are seen within the white matter. Empty sella morphology. Cerebellum: Unremarkable. Mass effect: No evidence of midline shift. Intracranial vasculature: unremarkable Soft tissues: Normal. Calvarium/osseous structures: No depressed skull fracture. Paranasal sinuses and mastoid air cells: Clear. Hypoplastic right frontal sinus. Visualized orbits: Orbital contents are intact. IMPRESSION: 1. No acute intracranial process. 2. Nonspecific white matter changes, likely secondary to chronic small vessel ischemic disease.
[2022-01-04 09:31] LABS: Appearance,Urine Clear (Clear); Bilirubin,Urine Negative (Negative); Blood,Urine Negative (Negative); Color,Urine Yellow; Glucose,Urine (UA) Negative (Negative); Ketones,Urine Negative (Negative); Leukocyte Esterase,Urine Negative (Negative); Nitrite,Urine Negative (Negative); PH, Urine 7.5 (5.0-8.0); Protein,Urine Negative (Negative); Urobilinogen,Urine <2.0 mg/dL (<2.0)
--- NOTE | 2022-01-04 12:28 | P.CNNES ---
History of Present Illness Consult date: 01/04/22 Requesting physician: Randall Lozada Reason for Consult: possible TIA, amnesia History of Present Illness: This is a 61-year-old woman who presented emergency department because of confusion episode. Some of the history is obtained from medical record. She stated today she woke up around 5:00 in the morning and was doing well and took a shower and after that she does not recall what transpired. She does recall what she did yesterday. According to the ED note her notified the ED team that the patient seems confused and she called him. She denies any urinary or bowel incontinence, denies any tongue bite soreness of the tongue. Denies any focal weakness, headache prior to the event. She does feel some more stressed than normal since she's having right ankle surgery next Saturday. She denies of any numbness of the face, difficulty swallowing. Denies of any recent fever. She had episodes similar to this but was prolonged and it lasted for a week and was a couple years ago and she was under a lot of stress and she just moved at that time and had some issues that she was dealing with. He denies history of stroke or TIA or any history of seizures. Some of the workup during this hospital visit consisted of: Initial vital signs is blood pressure of 134/90, heart rate of 77, respiratory of 16, temperature of 98.9 for oral pulse ox of 98% room air. CBC with differential is unremarkable Sodium is 136 and BUN is 22 otherwise rest of the chemistry panel is unremarkable. Initial serum glucose is 98 ammonia is less than 9. CT of the head is reported as no acute intracranial processes. Nonspecific white matter changes, likely secondary to chronic small vessel ischemic disease. EKG is reported as sinus rhythm. Left axis deviation. Low QRS voltage in the precordial leads. Abnormal EKG. Review of Systems Review of system: The 12 point system was reviewed and apparent positive and negative per HPI. Past Medical History Past Medical History: GI Bleed, Hypertension, Thyroid Disorder Additional Past Medical History / Comment(s): hx thyroid nodules., gi bleed (2019)., current blood in stool History of Any Multi-Drug Resistant Organisms: None Reported Past Surgical History: Appendectomy, Bariatric Surgery, Section, Hysterectomy, Joint Replacement, Orthopedic Surgery Additional Past Surgical History / Comment(s): 7/14/15 Revision total R knee arthroplasty. partial thyroidectomy, kyree knee replacements, rt knee arthroscopy, lap band, states 5 knee replacements. Past Anesthesia/Blood Transfusion Reactions: No Reported Reaction Past Psychological History: No Psychological Hx Reported Smoking Status: Former smoker Past Alcohol Use History: Occasional Past Drug Use History: None Reported - Past Family History Father Family Medical History: Cancer Additional Family Medical History / Comment(s): MELANOMA Medications and Allergies Home Medications Medication Instructions Recorded Confirmed Type Acetaminophen Tab [Tylenol] 1,000 mg PO DAILY 11/05/18 01/04/22 History Diclofenac Sodium [Voltaren] 75 mg PO DAILY 11/05/18 01/04/22 History FLUoxetine HCL [PROzac] 40 mg PO DAILY 11/05/18 01/04/22 History hydroCHLOROthiazide [Hydrodiuril] 50 mg PO DAILY 11/05/18 01/04/22 History amLODIPine BESYLATE/BENAZEPRIL 1 cap PO DAILY 05/09/21 01/04/22 History [Lotrel 5-20 MG] Levothyroxine Sodium [Synthroid] 50 mcg PO DAILY 01/04/22 01/04/22 History Allergies Allergy/AdvReac Type Severity Reaction Status Date / Time oxycodone Allergy Dyspnea & Verified 01/04/22 07:46 Confusion Sulfa (Sulfonamide Allergy "Turns Red" Verified 01/04/22 07:46 Antibiotics) Physical Examination - Vital Signs Vital Signs: Vital Signs Temp Pulse Resp BP Pulse Ox 01/04/22 09:04 97.7 F 74 18 115/80 96 01/04/22 08:00 75 18 112/82 95 01/04/22 07:00 71 16 130/45 97 01/04/22 06:03 98.9 F 77 16 134/90 98 Intake and Output 01/03/22 01/04/22 01/04/22 22:59 06:59 14:59 Other: Weight 76.204 kg GENERAL: The patient is lying in bed and is not in acute distress. CHEST: The heart rate is regular rate rhythm. No murmurs to auscultation. No carotid bruit bilaterally. LUNG: Clear to auscultation bilaterally no wheezing noted throughout. Not labored breathing. ABDOMEN/GI: Bowel sounds present in all 4 quadrants. No tenderness to palpation throughout. NEUROLOGICAL: Higher mental function: The patient is awake, alert, oriented to self, place and time. Patient is following commands. No aphasia and no neglect. Cranial nerves: The pupils are round, equal and reactive to light and accommodation. Visual arias are full to confrontation throughout. Extraocular movement is intact no nystagmus is noted. Facial sensation is normal to touch throughout. The facial strength is normal throughout. Hearing is normal bilaterally to hand rub. Tongue is midline and moved [id number] without any difficulty. No dysarthria is noted. Shoulder shrug is normal bilaterally. Motor: The strength is 5 over 5 throughout. Normal tone and bulk. Cerebellum: Normal finger to nose heel to helms bilaterally. Sensation: Sensation is normal to touch throughout. Reflexes (right/left): 2+ throughout. Plantars are downgoing bilaterally. Results - Laboratory Findings CBC and BMP: 01/04/22 06:25 01/04/22 06:25 Abnormal Lab Findings: Abnormal Labs 01/04/22 06:25 Sodium 136 L BUN 22 H Assessment and Plan Assessment: Transient global amnesia of unknown etiology. Unsure if due to stress related since having right ankle surgery vs underlying possible TIA. Cannot rule out seizure or other causes. Head and episode of transient global amnesia lasting for at least a week a couple years ago and at that time she was going under a lot of stress and recently moved/personal issues Hypertension Hypothyroidism Plan: I ordered carotid duplex, 2-D echo, TSH, vitamin B-12 and folate level. Ordered routine EEG to rule out any underlying active seizures or discharges I will not order MRI of the brain since it will not change management lead but the patient has continued confusion episodes then recommend MRI the brain with and without. Recommend consideration of MRI as an outpatient if no further episodes. I started the patient on aspirin 81 mg daily as well as Lipitor 40 mg At bedtime for secondary stroke prophylaxis Every 4 hours neuro checks Placed on cardiac monitoring We'll defer the rest of the medical management to primary team For DVT prophylaxis I start the patient on subcu heparin 5000 units every 8 hours The plan is discussed to the patient and her nurse. Recommend monitoring patient for one day and if continues to be at baseline and no new neurological issues and work-up is negative then clear for discharge. Thank you for the consultation. Time with Patient: Greater than 30
[2022-01-04] MEDS: ASPIRIN 81 MG PO SCH (13:37)
[2022-01-04] MEDS: HEPARIN SODIUM,PORCINE/PF 5,000 UNIT/0.5 ML SYRINGE SQ SCH ×2 (15:28→20:10)
--- NOTE | 2022-01-04 15:51 | US ---
EXAMINATION TYPE: US carotid duplex BILAT DATE OF EXAM: 01/04/2022 COMPARISON: Carotid ultrasound 04/14/2018. CLINICAL HISTORY: stroke. TECHNIQUE: Carotid duplex ultrasound examination. Indirect Doppler criteria was utilized. FINDINGS: EXAM MEASUREMENTS: RIGHT: Peak Systolic Velocity (PSV) cm/sec ----- Right CCA: 61.6 ----- Right ICA: 78.4 ----- Right ECA: 84.0 ICA/CCA ratio: 1.27 RIGHT: End Diastole cm/sec ----- Right CCA: 12.1 ----- Right ICA: 29.7 ----- Right ECA: 4.1 LEFT: Peak Systolic Velocity (PSV) cm/sec ----- Left CCA: 71.7 ----- Left ICA: 123. ----- Left ECA: 64.8 ICA/CCA ratio: 1.7 LEFT: End Diastole cm/sec ----- Left CCA: 16.8 ----- Left ICA: 35.0 ----- Left ECA: 4.7 VERTEBRALS (direction of flow): Right Vertebral: Antegrade Left Vertebral: Antegrade Rhythm: Normal [employer]ARSH[employer] COUNSELOR NOTES: No significant velocity elevations. Mild plaque. IMPRESSION: No ultrasound evidence of hemodynamically significant stenosis. Criteria for Assigning % of Stenosis / Diameter reduction (Estimation based on the indirect measurements of the internal carotid artery velocities (ICA PSV). 1. Normal (no stenosis)=ICA PSV < 125 cm/s: ratio < 2.0: ICA EDV<40 cm/s. 2. Less than 50% stenosis=ICA PSV < 125 cm/s: ratio < 2.0: ICA EDV<40 cm/s. 3. 50 to 69% stenosis=ICA PSV of 125 to 230 cm/s: ration 2.0 ? 4.0: ICA EDV 40-100 cm/s. 4. Greater than 70% stenosis to near occlusion= ICA PSV > 230 cm/s: ratio > 4.0: ICA EDV > 100 cm/s. 5. Near occlusion= ICA PSV velocities may be low or undetectable: variable ratio and ICA EDV. 6. Total occlusion=unable to detect flow.
--- NOTE | 2022-01-04 16:59 | P.HPIM ---
History of Present Illness H&P Date: 01/04/22 Patient is a 61-year-old female with PMH of hypothyroidism, hypertension, former smoker that presents the ED for confusion. She reports waking up this morning feeling well. She was getting ready to take a shower and became confused. She did not know her was, thought he is usually at work during this time. Her noted that she was confused when she called him. These symtoms prompted him to bring her to the ED. Currently, she reports that she is feeling more at baseline. She still does not remember the events after this morning. She denies any syncope or light headedness. She denies any slurred speech, numbness/weakness/tingling of the extremities. She reports a previous episode that happened years ago, workup was done which was unremarkable at that time. She denies any history of AL or CVA. She denies any history of seizures. She denies any headache, lower extremity edema, nausea vomiting, fever or chills, cough, chest pain, shortness breath, palpitations, changes in urination or bowel habits. No changes in appetite or weight. In the ED, her vital signs are stabl e. CBC was unremarkable. Coagulation panel was negative. CMP showed sodium 136, BUN of 22. Troponin was less than 0.012. Ammonia was negative. Urinalysis negative. Chest x-ray negative. Brain CT showed no acute findings. Patient is admitted for confusion, CVA workup with neurology consultation. Pertinent positives and negatives as discussed in HPI, a complete review of systems was performed and all other systems are negative. General: no distress, appears at stated age Derm: warm, dry Head: atraumatic, normocephalic, symmetric Eyes: EOMI, no lid lag, anicteric sclera Mouth: no lip lesion, mucus membranes moist Cardiovascular: S1S2 reg, no murmur Lungs: CTA bilateral, no rhonchi, no rales , no accessory muscle use Abdominal: soft, nontender to palpation, no guarding, no appreciable organomegaly Ext: no gross muscle atrophy, no edema, no contractures Neuro: CN II-XI grossly intact, no focal neuro deficits Psych: Alert, oriented, appropriate affect #Transient global amnesia #Hypertension #Hypothyroidism #Former smoker Patient presents with acute episode of confusion which is of unknown etiology. Urinalysis negative. Ammonia level negative. Neurology has been consulted. B12, folic acid, TSH ordered. Echocardiogram and EEG ordered. Continue telemetry monitoring. Continue neuro checks. Patient started on aspirin 81 mg by mouth daily Lipitor 40 mg by mouth at bedtime. Neurology recommends monitoring the patient overnight for recurrence of symptoms. Restarted amlodipine and benazepril. Restart hydrochlorothiazide. Monitor vitals, adjust medication as necessary. Restart Synthroid. DVT prophylaxis: Heparin Discussed with: Patient, ED physician Anticipated discharge: 1-[address]: Home A total of 30 minutes was spent on the care of this complex patient more than 50% of the time was spent in counseling and care coordination. Patient names her decision maker if she cant make decisions for herself. Patient would like to be FULL CODE. Past Medical History Past Medical History: GI Bleed, Hypertension, Thyroid Disorder Additional Past Medical History / Comment(s): hx thyroid nodules., gi bleed (2019)., current blood in stool History of Any Multi-Drug Resistant Organisms: None Reported Past Surgical History: Appendectomy, Bariatric Surgery, Section, Hysterectomy, Joint Replacement, Orthopedic Surgery Additional Past Surgical History / Comment(s): 09/07/14 Revision total R knee arthroplasty. partial thyroidectomy, kyree knee replacements, rt knee arthroscopy, lap band, states 5 knee replacements. Past Anesthesia/Blood Transfusion Reactions: No Reported Reaction Past Psychological History: No Psychological Hx Reported Smoking Status: Former smoker Past Alcohol Use History: Occasional Past Drug Use History: None Reported - Past Family History Father Family Medical History: Cancer Additional Family Medical History / Comment(s): MELANOMA Medications and Allergies Home Medications Medication Instructions Recorded Confirmed Type Acetaminophen Tab [Tylenol] 1,000 mg PO DAILY 11/05/18 01/04/22 History Diclofenac Sodium [Voltaren] 75 mg PO DAILY 11/05/18 01/04/22 History FLUoxetine HCL [PROzac] 40 mg PO DAILY 11/05/18 01/04/22 History hydroCHLOROthiazide [Hydrodiuril] 50 mg PO DAILY 11/05/18 01/04/22 History amLODIPine BESYLATE/BENAZEPRIL 1 cap PO DAILY 05/09/21 01/04/22 History [Lotrel 5-20 MG] Levothyroxine Sodium [Synthroid] 50 mcg PO DAILY 01/04/22 01/04/22 History Allergies Allergy/AdvReac Type Severity Reaction Status Date / Time oxycodone Allergy Dyspnea & Verified 01/04/22 07:46 Confusion Sulfa (Sulfonamide Allergy "Turns Red" Verified 01/04/22 07:46 Antibiotics) Physical Exam Vitals: Vital Signs Temp Pulse Pulse Resp BP BP Pulse Ox 01/04/22 13:43 99.4 F 82 16 131/98 97 01/04/22 12:45 98.2 F 86 14 133/83 95 01/04/22 11:30 97.7 F 77 14 142/80 99 01/04/22 11:20 81 18 126/87 99 01/04/22 09:04 97.7 F 74 18 115/80 96 01/04/22 08:00 75 18 112/82 95 01/04/22 07:00 71 16 130/45 97 01/04/22 06:03 98.9 F 77 16 134/90 98 Intake and Output 01/04/22 01/04/22 01/04/22 06:59 14:59 22:59 Other: # Voids 1 Weight 76.204 kg 76.204 kg Results CBC & Chem 7: 01/04/22 06:25 01/04/22 06:25 Labs: Abnormal Lab Results - Last 24 Hours (Table) 01/04/22 Range/Units 06:25 Sodium 136 L (137-145) mmol/L BUN 22 H (7-17) mg/dL Thrombosis Risk Factor Assmnt - Choose All That Apply Any of the Below Risk Factors Present?: No Other Risk Factors: Yes Each Risk Factor Represents 2 Points: Age 61-74 years Thrombosis Risk Factor Assessment Total Risk Factor Score: 2 Thrombosis Risk Factor Assessment Level: Low Risk
[2022-01-04] MEDS ORDERED: ATORVASTATIN 40 MG TAB PO SCH (21:00)
[2022-01-05 02:37] VITALS: RESP 16
--- NOTE | 2022-01-05 02:44 | EEG ---
ELECTROENCEPHALOGRAM REPORT DATE OF SERVICE: 01/04/2022 CLINICAL HISTORY: This is a 61-year-old woman with transient global amnesia. The video EEG is obtained to evaluate for seizure epileptiform activity. RELEVANT MEDICATION: The patient is not on any antiepileptic drugs. EEG TYPE: A routine 21-channel EEG is performed with video using the 10/20 electrode placement system. DESCRIPTION: Wakefulness is only obtained. During awake state, posterior-dominant rhythm consists of low to moderate voltage of 8.5 to 9 hertz activity that is well modulated, well sustained. There is no physiological stage 2 sleep architecture. There is no focal slowing. Interictal and ictal is none. ACTIVATION PROCEDURE: Photic stimulation did not evoke a posterior driving response. There is no abnormality during the photic stimulation. Hyperventilation is not performed. CLINICAL INTERPRETATION: This is a normal routine EEG. There is no focal slowing, epileptiform discharge, or seizure on the EEG. A normal routine EEG does not rule out underlying epilepsy. Clinical correlation is recommended. MMBETTY / GISELAN: [id number] / JOSEF
[2022-01-05] MEDS ORDERED: LEVOTHYROXINE 50 MCG TAB PO SCH (06:30)
[2022-01-05 07:57] VITALS: BP 151/70; PULSE 69; TEMP 98.1
[2022-01-05] MEDS: HEPARIN SODIUM,PORCINE/PF 5,000 UNIT/0.5 ML SYRINGE SQ SCH (08:11)
[2022-01-05] MEDS: ASPIRIN 81 MG PO SCH (08:11)
[2022-01-05 08:51] LABS: Chol/HDL Ratio 3.55 Ratio; LDL Cholesterol,Calculated 142.2 mg/dL (0.0-131.0)
[2022-01-05] MEDS ORDERED: amLODIPine 5 MG TAB PO SCH (09:00)
[2022-01-05] MEDS ORDERED: FOLIC ACID 1 MG TAB PO SCH (09:00)
[2022-01-05] MEDS ORDERED: FLUoxetine HCL 20 MG CAP PO SCH (09:00)
[2022-01-05] MEDS ORDERED: lisinopriL 20 MG TAB PO SCH (09:00)
--- NOTE | 2022-01-05 10:27 | P.DS ---
Providers Date of admission: 01/04/22 09:03 Expected date of discharge: 01/05/22 Attending physician: Galina Dan MD Consults: 01/04/22 09:00 Consult Physician Urgent Consulting Provider: Jackson Phelps Consult Reason/Comments: possible TIA, amnesia Do you want consulting provider notified?: Yes Primary care physician: [facility] Course: Patient is a 61-year-old female with PMH of hypothyroidism, hypertension, former smoker that presents the ED for confusion. She reports waking up this morning feeling well. She was getting ready to take a shower and became confused. She did not know her was, thought he is usually at work during this time. Her noted that she was confused when she called him. These symtoms prompted him to bring her to the ED. Currently, she reports that she is feeling more at baseline. She still does not remember the events after this morning. She denies any syncope or light headedness. She denies any slurred speech, numbness/weakness/tingling of the extremities. She reports a previous episode that happened years ago, workup was done which was unremarkable at that time. She denies any history of MA or CVA. She denies any history of seizures. She denies any headache, lower extremity edema, nausea vomiting, fever or chills, cough, chest pain, shortness breath, palpitations, changes in urination or bowel habits. No changes in appetite or weight. In the ED, her vital signs are stable. CBC was unremarkable. Coagulation panel was negative. CMP showed sodium 136, BUN of 22. Troponin was less than 0.012. Ammonia was negative. Urinalysis negative. Chest x-ray negative. Brain CT showed no acute findings. Patient is admitted for confusion, CVA workup with neurology consultation. Neurology was consulted and recommended carotid duplex, echocardiogram, TSH, vitamin B12, folate, EEG. Neurology also recommended aspirin 81 mg by mouth daily along with Lipitor 40 mg by mouth at bedtime. Carotid Doppler and EEG was negative. TSH, vitamin B12 and folate was within normal limits. Echocardiogram was pending at the time of this note. Patient was seen and examined this morning. No acute events overnight. Patient reports complete resolution of her confusion. She feels back to baseline. She is advised to follow-up with her PCP within 1-2 days of discharge. She is advised follow-up with neurology within 1 week of discharge. Prescription for aspirin and Lipitor will be sent for pharmacy. Pertinent studies include chest x-ray, brain CT, carotid Doppler, EEG, echocardiogram. General: no distress, appears at stated age Derm: warm, dry Head: atraumatic, normocephalic, symmetric Eyes: EOMI, no lid lag, anicteric sclera Mouth: no lip lesion, mucus membranes moist Cardiovascular: S1S2 reg, no murmur Lungs: CTA bilateral, no rhonchi, no rales , no accessory muscle use Ext: no gross muscle atrophy, no edema, no contractures Neuro: no focal neuro deficits Psych: Alert, oriented, appropriate affect Discharge diagnosis: #Transient global amnesia #Hypertension #Hypothyroidism #Former smoker Patient Condition at Discharge: Stable Plan - Discharge Summary Discharge Rx Participant: No New Discharge Prescriptions: No Action hydroCHLOROthiazide [Hydrodiuril] 50 mg PO DAILY FLUoxetine HCL [PROzac] 40 mg PO DAILY Diclofenac Sodium [Voltaren] 75 mg PO DAILY Acetaminophen Tab [Tylenol] 1,000 mg PO DAILY amLODIPine BESYLATE/BENAZEPRIL [Lotrel 5-20 MG] 1 cap PO DAILY Levothyroxine Sodium [Synthroid] 50 mcg PO DAILY Discharge Medication List Acetaminophen Tab [Tylenol] 1,000 mg PO DAILY 11/05/18 [History] Diclofenac Sodium [Voltaren] 75 mg PO DAILY 11/05/18 [History] FLUoxetine HCL [PROzac] 40 mg PO DAILY 11/05/18 [History] hydroCHLOROthiazide [Hydrodiuril] 50 mg PO DAILY 11/05/18 [History] amLODIPine BESYLATE/BENAZEPRIL [Lotrel 5-20 MG] 1 cap PO DAILY 05/09/21 [History] Levothyroxine Sodium [Synthroid] 50 mcg PO DAILY 01/04/22 [History] Follow up Appointment(s)/Referral(s): El Morales MD [Primary Care Provider] - 1-2 days
--- NOTE | 2022-01-05 11:22 | P.PN ---
Subjective Progress Note Date: 01/05/22 The patient is seen at bedside and stated she cannot remember yesterday's morning event but otherwise denies of any other neurological issues. Objective - Vital Signs Vital signs: Vital Signs Temp 98.1 F 01/05/22 07:00 Pulse 69 01/05/22 07:00 Resp 16 01/05/22 08:00 BP 151/70 01/05/22 07:00 Pulse Ox 96 01/05/22 07:00 FiO2 Intake & Output 01/04/22 01/05/22 01/05/22 18:59 06:59 18:59 Intake Total 360 240 Balance 360 240 Weight 76.204 kg Intake: Oral 360 240 Other: Voiding Method Toilet # Voids 1 1 - Exam GENERAL: The patient is lying in bed and is not in acute distress. NEUROLOGICAL: Higher mental function: The patient is awake, alert, oriented to self, place and time. Patient is following commands. No aphasia and no neglect. Cranial nerves: The pupils are round, equal and reactive to light and accom modation. Visual arias are full to confrontation throughout. Extraocular movement is intact no nystagmus is noted. Facial sensation is normal to touch throughout. The facial strength is normal throughout. Hearing is normal bilaterally to hand rub. Tongue is midline and moved [id number] without any difficulty. No dysarthria is noted. Shoulder shrug is normal bilaterally. Motor: The strength is 5 over 5 throughout. Normal tone and bulk. Cerebellum: Normal finger to nose heel to helms bilaterally. Sensation: Sensation is normal to touch throughout. Reflexes (right/left): 2+ throughout. Plantars are downgoing bilaterally. Some of the workup during this hospital visit consisted of: Initial serum glucose is 98 ammonia is less than 9. Vitamin B12: 543 Serum folate is 7.40 TSH: 1.790 CT of the head is reported as no acute intracranial processes. Nonspecific white matter changes, likely secondary to chronic small vessel ischemic disease. EKG is reported as sinus rhythm. Left axis deviation. Low QRS voltage in the precordial leads. Abnormal EKG. Routine EEG: Is normal. There is no focal slowing, epileptiform discharges or seizure. Carotid duplex: No ultrasound evidence of hemodynamically significant stenosis. - Labs CBC & Chem 7: 01/04/22 06:25 01/04/22 06:25 Labs: Abnormal Lab Results - Last 24 Hours (Table) 11/11/22 Range/Units 05:44 Triglycerides 183.00 H (0.00-149.00) mg/dL Cholesterol 249.00 H (0.00-200.00) mg/dL LDL Cholesterol, Calc 142.2 H (0.0-131.0) mg/dL HDL Cholesterol 70.20 H (40.00-60.00) mg/dL Assessment and Plan Assessment: Transient global amnesia of unknown etiology. Unsure if due to stress related since having right ankle surgery vs underlying possible TIA. Cannot rule out seizure or other causes. Had prior episode of transient global amnesia lasting for at least a week a couple years ago and at that time she was going under a lot of stress and recently moved/personal issues Hypertension Hypothyroidism Plan: Continue aspirin 81 mg daily as well as Lipitor 40 mg At bedtime for secondary stroke prophylaxis I will not order MRI of the brain since it will not change person but the patient has continued confusion episodes then recommend MRI the brain with and without. Recommend consideration of MRI as an outpatient if no further episodes. Pending 2D echo. Every 4 hours neuro checks On cardiac monitoring We'll defer the rest of the medical management to primary team For DVT prophylaxis On subcu heparin 5000 units every 8 hours Recommend patient to follow-up with neurologist as outpatient within 1-2 weeks. The plan is discussed to the patient and her nurse. Otherwise no additional work-up. Time with Patient: Less than 30
--- NOTE | 2022-01-05 17:57 | CA ---
Transthoracic Echo Report Name: Yoli Renae Age: 61 Gender: F : 1960 Exam Date: 01/04/2022 12:49 Exam Location: [facility] Ht (in): 61 Wt (lb): 168 Ordering Physician: Jackson Phelps MD Attending/Referring Phys: Rotary Machine Operator Tiesha Jackson RDCS Procedure CPT: Indications: stroke Cardiac Hx: Technical Quality: Good Contrast 1: Total Dose (mL): Contrast 2: Total Dose (mL): MEASUREMENTS (Male / Female) Normal Values 2D ECHO LV Diastolic Diameter PLAX 4.0 cm 4.2 - 5.9 / 3.9 - 5.3 cm LV Systolic Diameter PLAX 2.6 cm IVS Diastolic Thickness 1.1 cm 0.6 - 1.0 / 0.6 - 0.9 cm LVPW Diastolic Thickness 1.0 cm 0.6 - 1.0 / 0.6 - 0.9 cm LV Relative Wall Thickness 0.5 RV Internal Dim ED PLAX 2.9 cm LA Systolic Diameter LX 2.6 cm 3.0 - 4.0 / 2.7 - 3.8 cm LA Volume 35.3 cm??? 18 - 58 / 22 - 52 cm??? M-MODE Aortic Root Diameter MM 2.8 cm MV E Point Septal Separation 1.0 cm AV Cusp Separation MM 2.2 cm DOPPLER AV Peak Velocity 136.2 cm/s AV Peak Gradient 7.4 mmHg AI Peak Velocity 284.9 cm/s AI Peak Gradient 32.5 mmHg AI Pressure Half Time 1863.4 ms MV Area PHT 3.0 cm??? Mitral E Point Velocity 82.7 cm/s Mitral A Point Velocity 101.0 cm/s Mitral E to A Ratio 0.8 MV Deceleration Time 254.5 ms MV E' Velocity 4.6 cm/s Mitral E to MV E' Ratio 18.1 TR Peak Velocity 236.6 cm/s TR Peak Gradient 22.4 mmHg Right Ventricular Systolic Press 26.9 mmHg FINDINGS Left Ventricle Left ventricular ejection fraction is estimated at 60-65 %. Left ventricular cavity size normal. Mildly increased septal wall thickness. Mildly increased posterior wall thickness. Right Ventricle Normal right ventricular size and function. Right ventricular systolic pressure within normal limits. Right ventricular systolic pressure estimated at 27 mm hg. Right Atrium Normal right atrial size. Left Atrium Normal left atrial size. No evidence for an atrial septal defect. Mitral Valve Structurally normal mitral valve. No mitral stenosis, regurgitation or prolapse. Aortic Valve Trileaflet aortic valve. No aortic valve stenosis or regurgitation. Tricuspid Valve Structurally normal tricuspid valve. Mild tricuspid regurgitation. Pulmonic Valve Trace pulmonic regurgitation. Pericardium Normal pericardium. No pericardial effusion. Aorta Normal size aortic root and proximal ascending aorta. CONCLUSIONS Normal LV dimension and systolic function Previewed by: Dr. Giuliano Jansen MD (Electronically Signed) Final Date: 05 January 2022 17:56
== END 2022-01-05 12:47 | disposition home or self-care (01) ==
LOC: EC 05:59 → 6NMEDSUR 09:03
PROVIDERS: ADMIT Family Medicine; ATTEND Family Medicine
DX: G45.4 Transient global amnesia (principal); I10 Essential (primary) hypertension; E03.9 Hypothyroidism, unspecified; E78.5 Hyperlipidemia, unspecified; I07.1 Rheumatic tricuspid insufficiency; I37.1 Nonrheumatic pulmonary valve insufficiency; Z79.899 Other long term (current) drug therapy; Z79.890 Hormone replacement therapy; Z88.5 Allergy status to narcotic agent; Z88.2 Allergy status to sulfonamides; Z98.84 Bariatric surgery status; Z90.710 Acquired absence of both cervix and uterus; Z96.653 Presence of artificial knee joint, bilateral; Z87.891 Personal history of nicotine dependence; Z80.8 Family history of malignant neoplasm of other organs or systems; Z79.82 Long term (current) use of aspirin
CPT/HCPCS: 96372 ×2; 99285; 36415; 95816; 93005; 93306; 80061; 80053; 84443; 82607; 82140; 82746; 84484; 85025; 85610; 85730; 81003; 71046; 93880; 70450; G0378 ×2; J1644 ×2

== ENCOUNTER → 2023-04-20 | Outpatient (CLI) | payer BC ==
[2023-04-20 21:57] LABS: HCT 42.1 % (37.2-46.3); HGB 14.4 g/dL (12.0-15.0); MCH 33.2 pg (27.0-32.0); MCHC 34.2 g/dL (32.0-37.0); Mean Platelet Volume 9.4 FL (9.5-12.2); NRBC Per 100 WBC 0 X 10*3/uL (0.00-0.01); Platelet Count 280 X 10*3/uL (140-440); RBC 4.34 X 10*6/uL (4.10-5.20); RDW 12.1 % (11.5-14.5); WBC 7.89 X 10*3/uL (4.50-10.00)
[2023-04-20 22:23] LABS: ALT 25 U/L (8-44); AST 22 U/L (13-35); Albumin 4.4 g/dL (3.8-4.9); Alkaline Phosphatase 78 U/L (41-126); Blood Urea Nitrogen 22.4 mg/dL (9.0-27.0); Calcium 9.2 mg/dL (8.7-10.3); Carbon Dioxide 27.7 mmol/L (21.6-31.8); Chloride 100 mmol/L (96-109); Chol/HDL Ratio 2.99 Ratio; Globulin 2.2 g/dL (1.6-3.3); Glucose 80 mg/dL (70-110); LDL Cholesterol,Calculated 147.7 mg/dL (0.0-131.0); Potassium 4.1 mmol/L (3.5-5.5); Sodium 140 mmol/L (135-145); T4, Free (Free Thyroxine) 1.68 ng/dL (0.80-1.80); Total Bilirubin 0.5 mg/dL (0.3-1.2); Total Protein 6.6 g/dL (6.2-8.2); VLDL Calculation 19.42 mg/dL (5.00-40.00)
== END | disposition home or self-care (01) ==
LOC: LABWHC1 09:30
PROVIDERS: ATTEND Family Medicine
DX: Z00.00 Encounter for general adult medical examination without abnormal findings (principal); E03.9 Hypothyroidism, unspecified
CPT/HCPCS: 36415; 80053; 80061; 84439; 84443; 84481; 85027

== ENCOUNTER → 2023-12-31 | Outpatient (CLI) | payer BC ==
--- NOTE | 2024-01-01 21:32 | BD ---
EXAMINATION TYPE: Axial Bone Density DATE OF EXAM: 12/31/2023 CLINICAL HISTORY: 63 years old Female. ICD-10 CODE: M89.9 DISORDER OF BONE , Z78.0 Height: 59 Weight: 161.5 FRAX RISK QUESTIONS: Alcohol (3 or more units per day): no Family History (Parent hip fracture): no Glucocorticoids (More than 3mos): no (Ex: prednisone, prednisolone, methylprednisolone, dexamethasone, and hydrocortisone). History of Fracture in Adulthood: yes Secondary Osteoporosis: 1. Type 1 Diabetes: no 2. Hyperthyroidism: no 3. Menopause before 45: no 4. Malnutrition: no 5. Chronic liver disease: no Rheumatoid Arthritis: no Current Tobacco Use: no RISK FACTORS HISTORY OF: Surgery to Spine/Hip(right/left)/Wrist (right/left): no MEDICATIONS: Thyroid Medications: levothyroxine How Lon years EXAM MEASUREMENTS: Bone mineral densitometry was performed using the ScaleBase System. Bone mineral density as measured about the Lumbar spine is: ----- L1-L4(G/cm2): 1.448 T Score Values are as follows: ----- L1: 2.6 ----- L2: 3.2 ----- L3: 1.5 ----- L4: 1.8 ----- L1-L4: 2.2 Z Score Values are as follows: ----- L1: 3.9 ----- L2: 4.5 ----- L3: 2.8 ----- L4: 3.1 ----- L1-L4: 3.6 Bone mineral density : baseline Bone mineral density about the R hip (g/cm2): 1.113 Bone mineral density about the L hip (g/cm2): 1.109 T Score values are as follows: -----R Neck: -0.5 -----L Neck: -0.6 -----R Total: 0.8 -----L Total: 0.8 Z Score values are as follows: -----R Neck: 0.8 -----L Neck: 0.7 -----R Total: 1.9 -----L Total: 1.8 Bone mineral density : baseline FRAX%s: The graph provided illustrates a 11.8 % chance for a major osteoporotic fx and a 0.6% chance for the hips probability for fx in 10 years time. IMPRESSION: Normal (Values between +1 and -1 indicate normal bone mass). Consider repeating this study in 5 year s or sooner if there is some new clinical indication. NOTE: T-SCORE=SD OF THE YOUNG ADULT MEAN. [facility], , 01/01/2024 9:30 PM
--- NOTE | 2024-01-05 19:10 | MM ---
Reason for Exam: Screening (asymptomatic). Last mammogram was performed 4 year(s) and 5 month(s) ago. Patient History: Menarche at age 10. First Full-Term at age 19. Left ovary removed at age 48. Right ovary removed at age 48. Hysterectomy at age 48. Postmenopausal. Risk Values: Chrissie 5 year model risk: 1.5%. NCI Lifetime model risk: 5.6%. Prior Study Comparison: 11/25/2010 Bilateral Screening Mammogram, [facility]. 04/14/2018 Bilateral Screening Mammogram, [facility]. 08/20/2019 Bilateral Diagnostic Mammogram, [facility]. Tissue Density: There are scattered areas of fibroglandular density. Findings: Analyzed By CAD. The pattern is symmetrical. There is chronic nodularity within the medial anterior right breast. No significant interval change is evident. Benign spherical calcification is in the right breast. No suspicious groups of microcalcifications, spiculated or lobular masses, architectural distortion or other secondary signs of malignancy are mammographically apparent. Overall Assessment: Benign, BI-RAD 2 Management: Screening Mammogram of both breasts in 1 year. A negative mammogram report should not preclude additional follow up of suspicious palpable abnormalities. Patient should continue monthly self breast exam. A clinical breast exam by your physician is recommended on an annual basis and results should be correlated with mammographic findings. Note on Chrissie scores and lifetime risk: 1. A Chrissie score greater than 3% is considered moderate risk. If this is the case, consider specialist referral to assess eligibility for a risk reducing agent. 2. If overall lifetime risk for the development of breast cancer is 20% or higher, the patient may qualify for future screening with alternating mammogram and breast MRI. [facility], , 01/05/2024 7:07 PM. Electronically signed and approved by: Ian Francois D.O. Radiologis
== END | disposition home or self-care (01) ==
LOC: RADMAMWWP 09:45
PROVIDERS: ATTEND Family Medicine
DX: Z12.31 Encounter for screening mammogram for malignant neoplasm of breast (principal); M89.9 Disorder of bone, unspecified; Z78.0 Asymptomatic menopausal state; Z90.722 Acquired absence of ovaries, bilateral; R92.323 Mammographic fibroglandular density, bilateral breasts; N63.10 Unspecified lump in the right breast, unspecified quadrant
CPT/HCPCS: 77063; 77067; 77080

== ENCOUNTER → 2024-06-27 | Outpatient (CLI) | payer BC ==
[2024-06-27 13:34] LABS: HCT 44.5 % (37.2-46.3); MCH 32.7 pg (27.0-32.0); MCHC 33.7 g/dL (32.0-37.0); MCV 96.9 FL (80.0-97.0); Mean Platelet Volume 9.5 FL (9.5-12.2); NRBC Per 100 WBC 0 X 10*3/uL (0.00-0.01); Platelet Count 239 X 10*3/uL (140-440); RBC 4.59 X 10*6/uL (4.10-5.20); RDW 12.9 % (11.5-14.5)
[2024-06-27 14:04] LABS: ALT 21 U/L (8-44); AST 22 U/L (13-35); Albumin 4.5 g/dL (3.8-4.9); Albumin/Globulin Ratio 2.25 Ratio (1.60-3.17); Alkaline Phosphatase 78 U/L (41-126); BUN/Creat Ratio 27.44 Ratio (12.00-20.00); Blood Urea Nitrogen 24.7 mg/dL (9.0-27.0); Calcium 9.2 mg/dL (8.7-10.3); Carbon Dioxide 24.8 mmol/L (21.6-31.8); Chloride 102 mmol/L (96-109); Glucose 100 mg/dL (70-110); Potassium 3.7 mmol/L (3.5-5.5); Sodium 140 mmol/L (135-145); T4, Free (Free Thyroxine) 1.64 ng/dL (0.80-1.80); Total Bilirubin 0.8 mg/dL (0.3-1.2); Total Protein 6.5 g/dL (6.2-8.2); VLDL Calculation 18.56 mg/dL (5.00-40.00)
== END | disposition home or self-care (01) ==
LOC: LABWHC1 09:28
PROVIDERS: ATTEND Family Medicine
DX: Z00.00 Encounter for general adult medical examination without abnormal findings (principal); E03.9 Hypothyroidism, unspecified
CPT/HCPCS: 36415; 80053; 80061; 84439; 84443; 84481; 85027